=== PATIENT | female | born 1970 | race Native Hawaiian/Other Pacific Islander ===

== ENCOUNTER 2016-06-27 13:30 | Emergency (ER) | payer MEDICAID ==
[2016-06-27 15:16] VITALS: BP 152/92
[2016-06-27 15:54] LABS: Basophils % (Auto) 0.2 % (0.0-1.8); Eosinophils % (Auto) 0.9 % (0.0-4.3); Hematocrit 33.6 % (30.3-42.9); Mean Corpuscular HGB Conc 33 % (30-34); Mean Corpuscular Hemoglobin 28 pg (28-32); Mean Corpuscular Volume 87 fl (79-97); Platelet Count 286 K/mm3 (140-440); Red Blood Count 3.88 M/mm3 (3.65-5.03); White Blood Count 5.3 K/mm3 (4.5-11.0)
[2016-06-27 16:03] LABS: Alanine Aminotransferase 31 units/L (7-56); Albumin 4.2 g/dL (3.9-5); Albumin/Globulin Ratio 1.7 %; Alkaline Phosphatase 60 units/L (35-129); Anion Gap 15 mmol/L; Bilirubin,Total 0.4 mg/dL (0.1-1.2); Blood Urea Nitrogen 12 mg/dL (7-17); Calcium 8.2 mg/dL (8.4-10.2); Carbon Dioxide 26 mmol/L (22-30); Chloride 102.1 mmol/L (98-107); Glucose 128 mg/dL (65-100); Potassium 3.5 mmol/L (3.6-5.0); Sodium 140 mmol/L (137-145); Total Protein 6.7 g/dL (6.3-8.2)
[2016-06-27 16:06] LABS: Red Cell Distribution Width 20.5 % (13.2-15.2)
== END 2016-06-27 22:39 | disposition left against medical advice (07) ==
LOC: ED 13:30
DX: R05 Cough (principal); R09.89 Other specified symptoms and signs involving the circulatory and respiratory systems; Z91.048 Other nonmedicinal substance allergy status; Z53.21 Procedure and treatment not carried out due to patient leaving prior to being seen by health care provider
CPT/HCPCS: 36415; 80053; 85025

== ENCOUNTER 2016-06-30 13:14 | Outpatient (CLI) | payer MEDICAID ==
--- NOTE | 2016-06-30 14:02 | Mammography Report ---
RIGHT DIGITAL DIAGNOSTIC MAMMOGRAM with CAD: 06/30/16 13:14:00 CLINICAL: Status post chemotherapy for right breast cancer. COMPARISON:01/09/16 FINDINGS: Decreased mammographic density and no distinct residual mass in the outer breast at the site of the cancer.No architectural distortion or suspicious calcifications. Four right axillary lymph nodes and one lymph node with a clip. The previously documented metastatic lymph node now measures 1.8 cm compared to 3.0 cm on the last exam. IMPRESSION: Partial mammographic response to chemotherapy. BI-RADS CATEGORY: 6--Known Cancer ACR BI-RADS MAMMOGRAPHIC CODES: 0 = Needs additional imaging evaluation; 1 = Negative; 2 = Benign; 3 = Probably benign; 4 = Suspicious; 5 = Malignant; 6 = Known biopsy-proven malignancy COMMENT: 1. Dense breast tissue, i.e., adenosis, fibrocystic changes, etc., may obscure an underlying neoplasm. 2. Approximately 10% of cancers are not detected with mammography. 3. A negative mammography report should not delay biopsy if a clinically suspicious mass is present. COMMENT: Patient follow-up letters are generated by our [employer] application.
== END 2016-06-30 13:15 | disposition home or self-care (01) ==
LOC: SPVWC 13:14
PROVIDERS: ATTEND Surgery
DX: C50.911 Malignant neoplasm of unspecified site of right female breast (principal); R92.8 Other abnormal and inconclusive findings on diagnostic imaging of breast
CPT/HCPCS: G0206-RT

== ENCOUNTER 2016-07-06 09:20 | Outpatient (CLI) | payer MEDICAID | END 2016-07-06 09:21 | disposition home or self-care (01) | LOC: ECHO 09:20 | PROVIDERS: ATTEND Internal Medicine Hematology | DX: C50.411 Malignant neoplasm of upper-outer quadrant of right female breast (principal) | CPT/HCPCS: 93306 ==

== ENCOUNTER 2016-07-22 08:51 | Observation (INO) | payer MEDICAID ==
[2016-07-21 12:20] LABS: Basophils % (Auto) 0.2 % (0.0-1.8); Eosinophils % (Auto) 1.7 % (0.0-4.3); Hemoglobin 11.4 gm/dl (10.1-14.3); White Blood Count 8.8 K/mm3 (4.5-11.0)
--- NOTE | 2016-07-21 12:47 | XRay Report ---
CHEST 2 VIEWS INDICATION: Right breast cancer. COMPARISON: None similar. FINDINGS: PA and lateral chest radiographs demonstrate normal cardiomediastinal silhouette and clear lungs, given the inspiration. No pleural effusions or CHF. Left subclavian port tip along the SVC. Slight bony degenerative changes. CONCLUSION: No acute disease, as described. Thank you for the opportunity to participate in this patient's care.
[2016-07-21 12:54] LABS: Mean Corpuscular HGB Conc 32 % (30-34); Mean Corpuscular Hemoglobin 27 pg (28-32); Mean Corpuscular Volume 85 fl (79-97); Platelet Count 297 K/mm3 (140-440); Red Blood Count 4.13 M/mm3 (3.65-5.03); Red Cell Distribution Width 19.3 % (13.2-15.2)
[~2016-07-22 08:51] MED LIST: NACL 0.9% 1000 ML 1,000 ML IV SCH; NEURONTIN PO NR; PEPCID PO NR
[2016-07-22] MEDS: SUBLIMAZE IV SCH ×3 (09:42→15:01)
[2016-07-22] MEDS: VERSED IV NR ×2 (09:42→14:47)
--- NOTE | 2016-07-22 10:14 | Anesthesia Day of Surgery ---
Anesthesia Day of Surgery - Day of Surgery Patient Examined: Yes Patient H&P Reviewed: Yes Patient is NPO: Yes
--- NOTE | 2016-07-22 10:14 | Anesthesia Consultation ---
Anesthesia Consult and Med Hx Date of service: 07/22/16 - Airway Anesthetic Teeth Evaluation: Good ROM Head & Neck: Adequate Mental/Hyoid Distance: Inadequate Mallampati Class: Class II Intubation Access Assessment: Possibly Difficult - Pulmonary Exam CTA: Yes - Cardiac Exam Cardiac Exam: RRR - Pre-Operative Health Status ASA Pre-Surgery Classification: ASA2 Proposed Anesthetic Plan: General Nerve Block: PEC - Pulmonary Hx Smoking: No Hx Sleep Apnea: No - Cardiovascular System Hx Cardia Arrhythmia: No - Gastrointestinal Hx Gastroesophageal Reflux Disease: Yes (moderate) - Endocrine Hx Non-Insulin Dependent Diabetes: No Hx Thyroid Disease: No - Other Systems Hx Cancer: Yes (RIGHT BREAST, DX: 12/2015) Hx Obesity: Yes (BMI>40)
[2016-07-22] MEDS ORDERED: ANCEF/STERILE WATER 2 GM/20 ML IV NR (10:18)
[2016-07-22] MEDS ORDERED: DIPRIVAN 10 MG/ML IV ONE (12:51)
[2016-07-22] MEDS ORDERED: DILAUDID ONE (12:51)
[2016-07-22] MEDS ORDERED: MARCAINE-EPI/PF 0.5%-1:200,000 INFILTRATI ONE (13:28)
[2016-07-22] MEDS ORDERED: DECADRON ONE (13:28)
[2016-07-22] MEDS ORDERED: WATER FOR IRRIG STERILE IR ONE (16:13)
[2016-07-22] MEDS ORDERED: NACL 0.9% 1000 ML 1,000 ML ONE (17:24)
[2016-07-22] MEDS ORDERED: XYLOCAINE MPF 2% ONE (18:07)
[2016-07-22] MEDS ORDERED: ZOFRAN ONE (18:55)
[2016-07-22] MEDS ORDERED: TORADOL ONE (18:55)
[2016-07-22] MEDS ORDERED: ANCEF ONE (18:56)
[2016-07-22] MEDS ORDERED: SODIUM CHLORIDE FLUSH SYRINGE 10 ML IV PRN (19:55)
[2016-07-22] MEDS ORDERED: ZOFRAN IV PRN (19:55)
[2016-07-22] MEDS ORDERED: TYLENOL PO PRN (19:55)
[2016-07-22] MEDS ORDERED: BENADRYL PO PRN (19:55)
[2016-07-22] MEDS ORDERED: REGLAN PO PRN (19:55)
[2016-07-22] MEDS ORDERED: MORPHINE IV PRN (20:05)
--- NOTE | 2016-07-22 20:05 | Short Stay Summary ---
Short Stay Documentation Date of service: 07/22/16 - History H&P: obtained from office - Allergies and Medications Current Medications: Allergies POWDER IN GLOVES Adverse Reaction (Uncoded 02/05/16 09:26) Itching Home Medications Medication Instructions Recorded Confirmed Last Taken Type Hydroxyzine HCl [hydrOXYzine] 50 mg PO QDAY 01/24/16 01/24/16 07/20/16 History Sertraline [Zoloft] 100 mg PO QDAY 01/24/16 02/05/16 07/20/16 History risperiDONE [RisperDAL] 2 mg PO QHS 01/24/16 01/24/16 07/20/16 History HYDROcodone/APAP 5-325 [[place] 1 each PO Q6HR PRN #30 tablet 02/05/16 Unknown Rx 5/325] HYDROcodone/APAP 5-325 [[place] 1 each PO Q6HR PRN #30 tablet 07/22/16 Unknown Rx 5/325] Active Medications Acetaminophen (Tylenol) 650 mg PO Q6H PRN PRN Reason: Pain MILD(1-3)/Fever >100.5/LOMBARDI Cefazolin Sodium (Ancef/Sterile Water 2 Gm/20 Ml) 2 gm IV PREOP NR Stop: 07/22/16 23:59 Celecoxib (Celebrex) 200 mg PO PREOP NR Stop: 07/22/16 23:01 Last Admin: 07/22/16 09:45 Dose: 200 mg Diphenhydramine HCl (Benadryl) 25 mg PO Q8H PRN PRN Reason: Itching Docusate Sodium (Colace) 100 mg PO BID CASH Famotidine (Pepcid) 20 mg PO PREOP NR Stop: 07/22/16 23:00 Last Admin: 07/22/16 09:45 Dose: 20 mg Fentanyl (Sublimaze) 100 mcg IV ONCE CASH Stop: 07/22/16 23:00 Last Admin: 07/22/16 15:01 Dose: 50 mcg Gabapentin (Neurontin) 600 mg PO PREOP NR Stop: 07/22/16 23:00 Last Admin: 07/22/16 09:45 Dose: 600 mg Sodium Chloride (Nacl 0.9% 1000 Ml) 1,000 mls @ 100 mls/hr IV DIRECT CASH Last Admin: 07/22/16 09:40 Dose: 100 mls/hr Lactated Ringer's (Lactated Ringers) 1,000 mls @ 125 mls/hr IV DIRECT CASH Midazolam HCl (Versed) 2 mg IV PREOP NR Stop: 07/22/16 23:00 Last Admin: 07/22/16 14:47 Dose: 2 mg Miscellaneous Medication (Risperidone [Risperdal]) 2 mg PO QHS CASH Ondansetron HCl (Zofran) 4 mg IV Q8H PRN PRN Reason: N/V unrelieved by Reglan Oxycodone/Acetaminophen (Percocet 5/325) 1 tab PO Q6H PRN PRN Reason: Pain, Moderate (4-6) Sertraline HCl (Zoloft) 100 mg PO QDAY CASH Sodium Chloride (Sodium Chloride Flush Syringe 10 Ml) 10 ml IV PRN PRN PRN Reason: LINE FLUSH - Brief post op/procedure progress note Date of procedure: 07/22/16 Pre-op diagnosis: Right breast cancer of the upper outer quadrant Post-op diagnosis: same Procedure: Right partial mastectomy with SLNB Anesthesia: GETA Findings: Radiograph specimen with clip present within known breast cancer mass-partial mastectomy specimen and axillary lymph node biopsy specimen Surgeon: ETHAN FISHMAN Estimated blood loss: minimal Pathology: list (right partial mastectomy and 4 SLNs) Specimen disposition: to lab Condition: stable - Disposition Condition at discharge: Good Disposition: DC/TX SHORT-TERM GEN HOSP INPT Short Stay Discharge Plan Activity: other (no heavy lifting) Diet: low fat Wound: other (keep incision clean and dry and may shower in 24 hours ; no baths , pools or lakes; do not rub or scrub incisions) Follow up with: SLICK ROMERO MD [Primary Care Provider] - 7 Days ETHAN FISHMAN MD [Staff Physician] - 7 Days Prescriptions: HYDROcodone/APAP 5-325 [[place] 5/325] 1 each PO Q6HR PRN #30 tablet PRN Reason: Pain
--- NOTE | 2016-07-22 20:09 | Post Anesthesia Evaluation ---
- Post Anesthesia Evaluation Patient Participated: Yes Airway Patent: Yes Stable Respiratory Function: Yes Nausea/Vomiting: No Temp > 96.8F: Yes Pain Manageable: Yes Adequeate Hydration: Yes Anesthesia Complications: No
--- NOTE | 2016-07-22 20:26 | Operative Report ---
Operative Report Operative Report: Date of surgery: 07/22/2016 Preoperative diagnosis: Right breast cancer of the upper outer quadrant Postoperative diagnosis: Same Procedure: Ultrasound guided right partial mastectomy and sentinel lymph node biopsy Surgeon: Constanza Powell M.D. Anesthesia: Gen. Drains: None Findings: Radiograph specimen of right partial mastectomy with mass and clip present. Radiograph specimen of axillary lymph node with clip present. Frozen section performed with 4 sentinel lymph nodes with one lymph node positive for macro metastasis. Complications: None Disposition: PACU in good condition Indications for operative procedure: This is a 45-year-old lady with stage III right breast cancer who recently completed neoadjuvant chemotherapy. Patient was in need of surgical intervention. Patient wished to proceed with the above. Procedure in detail: The patient was taken to the operating room and was laid supine. Anesthesia placed a pectoral block prior to surgery. Gen. anesthesia was administered. The right breast and axilla were prepped and draped in the normal sterile operative fashion. The nipple was injected with radioisotope. Gamma probe was inserted into the axilla to identify sentinel lymph node. Skin incision was made at the axilla with a 15 blade knife with dissection taken down to the subcutaneous tissue. The axilla axillary fascia was opened. The gamma probe was inserted with a total 4 sentinel lymph nodes identified. Significant reactive tissue was present within the axilla. Radiopgraph specimen of One lymph node with clip present. Frozen section of one of 4 positive lymph nodes positive for macro metastasis. It was decided not to proceed with an axillary lymph node dissection givean one of four positive lymph nodes and will await final pathology. Patient understood pending final pathology additional procedure may be needed in regards to the axillary lymph node dissection and/or total mastectomy pending surgical margins. I spoke with patient's medical oncologist Dr. Keyes who did not recommend proceeding with axillary lymph node dissection given patient will need adjuvant radiation therapy and should await final pathology. Attention was then taken towards the right breast. Ultrasound was used to sandy the area of incision of known breast cancer at the 9 o'clock position about 3-4 cm from the nipple. A skin incision was made with a 10 blade knife with dissection taken down to the subcutaneous tissues. Procedure began with the raising og the superior flap taken with dissection taken down posteriorly to the pectoralis muscle followed by raising of the medial flap, inferior flap and lateral flap all taken down to the pectoralis muscle. The partial mastectomy was removed from the pectoralis muscle without incident. Hemostasis was obtained with the Bovie cautery. Radiograph specimen with clip and mass present. The subcutaneous tissues were then approximated and closed with interrupted 3-0 Vicryl and skin brought together with a running 4-0 Monocryl and skin affix. The patient tolerated surgery very well and she was awakened from anesthesia without any complication and transferred to PACU in good condition.
[2016-07-22] MEDS: COLACE PO SCH (21:40)
[2016-07-22] MEDS: LACTATED RINGERS 1,000 ML IV SCH (21:40)
[2016-07-22] MEDS ORDERED: RisperDAL PO SCH (22:00)
[2016-07-22] MEDS ORDERED: NON-FORMULARY (Risperidone [Risperdal] 2 MG) PO SCH (22:00)
[2016-07-22] MEDS: PERCOCET 5/325 PO PRN (22:45)
[2016-07-23] MEDS: LACTATED RINGERS 1,000 ML IV SCH (06:56)
[2016-07-23] MEDS: PERCOCET 5/325 PO PRN (06:57)
--- NOTE | 2016-07-23 07:54 | Admit Criteria Form ---
Admission Criteria Met: Pending
--- NOTE | 2016-07-23 08:20 | Mammography Report ---
SPECIMEN RADIOGRAPH RIGHT SENTINEL NODE: 07/22/16 06:32 PM CLINICAL: Surgical excision of right single node. FINDINGS: Fragments of tissue are unremarkable with no clip or calcifications. IMPRESSION: No significant radiographic findings.
--- NOTE | 2016-07-23 08:21 | Mammography Report ---
SPECIMEN RADIOGRAPH RIGHT AXILLA: 07/22/16 07:20 9 PM CLINICAL: Axillary node dissection. FINDINGS: A 1.4 cm lymph node with a biopsy clip is identified within the assessment. IMPRESSION: Excision of the previously biopsied lymph node.
--- NOTE | 2016-07-23 08:22 | Mammography Report ---
SPECIMEN RADIOGRAPH RIGHT BREAST: 07/22/16 05:50 1 PM CLINICAL: Right excisional biopsy. FINDINGS: A single small tissue specimen with no identifiable mass or calcifications.
--- NOTE | 2016-07-23 08:23 | Mammography Report ---
SPECIMEN RADIOGRAPH RIGHT BREAST: 07/22/16 19:29 CLINICAL: Surgical excision of none cancer. FINDINGS: The targeted mass with a clip is identified within the specimen. IMPRESSION: Excision of the targeted mass.
--- NOTE | 2016-07-23 09:07 | Progress Note ---
Subjective Date of service: 07/23/16 Interval history: 1st POD after mastectomy Patient is in the bed, mostly comfortable. Pain is well controlled with pain meds. Ambulated well. No nausea or vomiting. No anesthesia complications Objective - Constitutional Vitals: Vital Signs - 12hr 07/22/16 07/23/16 07/23/16 22:45 00:00 04:30 Temperature 98.2 F 98.0 F Pulse Rate [ 71 72 Left] Respiratory 19 20 20 Rate Blood Pressure 119/61 104/74 [Left Arm] 07/23/16 06:57 Temperature Pulse Rate [ Left] Respiratory 18 Rate Blood Pressure [Left Arm] - Labs CBC & Chem 7: 07/21/16 12:05
[2016-07-23 09:28] VITALS: BP 112/63
[2016-07-23] MEDS ORDERED: ZOLOFT PO SCH (10:00)
[2016-07-23] MEDS: COLACE PO SCH (10:11)
--- NOTE | 2016-07-23 22:27 | Progress Note ---
Assessment and Plan This is a 45 year old lady with right breast cancer POD#1 right partial mastectomy with SLNB 1. No acute events overnight, pain well controlled. 2. Right breast incision clean, dry and intact and healing well. 3. OOB to hallway. 4. D/C planning for today. Subjective Date of service: 07/23/16 Principal diagnosis: Right breast cancer of the upper outer quadrant Interval history: Status post right partial mastectomy and SLNB Objective - Constitutional General appearance: Present: no acute distress - EENT Eyes: PERRL, EOM intact ENT: hearing intact, clear oral mucosa Ears: bilateral: normal - Neck Neck: supple, normal ROM - Respiratory Respiratory effort: normal Respiratory: bilateral: CTA - Breasts Breasts: other (Right breast incision clean, dry and intact; no fluid collection; right axillary incisio clean, dry and intact) - Cardiovascular Rhythm: regular Extremities: no ischemia, pulses intact, pulses symmetrical, No edema, normal temperature, normal color, Full ROM - Gastrointestinal General gastrointestinal: Present: soft, non-tender, non-distended Rectal Exam: deferred - Genitourinary Female genitourinary: deferred - Integumentary Integumentary: clear, warm, dry - Musculoskeletal Musculoskeletal: strength equal bilaterally - Neurologic Neurologic: CNII-XII intact, moves all extremities - Psychiatric Psychiatric: appropriate mood/affect, intact judgment & insight, memory intact, cooperative - Labs CBC & Chem 7: 07/21/16 12:05
== END 2016-07-23 11:35 | disposition home or self-care (01) ==
LOC: OR 08:51 → OB 19:55
PROVIDERS: ADMIT Surgery; ATTEND Surgery
DX: C50.411 Malignant neoplasm of upper-outer quadrant of right female breast (principal); C96.9 Malignant neoplasm of lymphoid, hematopoietic and related tissue, unspecified; D24.1 Benign neoplasm of right breast; E66.3 Overweight; R59.1 Generalized enlarged lymph nodes; Z79.899 Other long term (current) drug therapy
CPT/HCPCS: 19301; 36415; 38525; 64450; 71020; 76098; 78800; 84703; 85025; 88307; 88331; 88334; 88342; 88361; 93005; 93010; 96374; A9541; G0378; J0690; J1100; J1170; J1885; J2250; J2405; J2704; J3010; J7030; J7120; 88333

== ENCOUNTER 2016-07-27 09:03 | Outpatient (CLI) | payer OTHER ==
--- NOTE | 2016-07-27 11:09 | XRay Report ---
LEFT KNEE, 2 views: History: Left knee pain. Normal bone mineralization. Mild osteoarthritic changes are identified in all 3 compartments. No fracture, bone lesion, osteochondral defect or joint effusion. IMPRESSION: Mild osteoarthritic changes. No acute process.
--- NOTE | 2016-07-27 11:10 | XRay Report ---
LUMBOSACRAL SPINE, 3 VIEWS: History: Back pain Findings: Normal bone mineralization. Mild to moderate degenerative disc disease and facet arthropathy are identified at all levels. No compression deformity, subluxation or bone lesion. The sacrum and SI joints are unremarkable. Impression: Mild to moderate multilevel lumbar spondylosis. No acute process.
== END 2016-07-27 09:04 | disposition home or self-care (01) ==
LOC: XRAY 09:03
PROVIDERS: ATTEND Internal Medicine
DX: C50.919 Malignant neoplasm of unspecified site of unspecified female breast (principal); F31.9 Bipolar disorder, unspecified; F41.9 Anxiety disorder, unspecified; M19.90 Unspecified osteoarthritis, unspecified site; M51.37 Other intervertebral disc degeneration, lumbosacral region; M47.896 Other spondylosis, lumbar region
CPT/HCPCS: 72100

== ENCOUNTER 2016-08-26 16:58 | Outpatient (CLI) | payer MEDICAID, OTHER | END 2016-08-26 16:59 | disposition home or self-care (01) | LOC: LABHHL 16:58 → LAB 16:58 | PROVIDERS: ATTEND Surgery | DX: N64.89 Other specified disorders of breast (principal) | CPT/HCPCS: 87116 ==

== ENCOUNTER 2016-09-26 11:35 | Emergency (ER) | payer MEDICAID ==
[2016-09-26 12:15] LABS: Hematocrit 36.9 % (30.3-42.9); Hemoglobin 11.8 gm/dl (10.1-14.3); Mean Corpuscular HGB Conc 32 % (30-34); Mean Corpuscular Hemoglobin 25 pg (28-32); Mean Corpuscular Volume 77 fl (79-97); Platelet Count 263 K/mm3 (140-440); Red Blood Count 4.77 M/mm3 (3.65-5.03); Red Cell Distribution Width 17.7 % (13.2-15.2); White Blood Count 8.5 K/mm3 (4.5-11.0)
--- NOTE | 2016-09-26 12:19 | XRay Report ---
LEFT KNEE, 3 views: History: Left knee pain after fall. Mild to moderate osteoarthritic changes are identified. The medial compartment is most affected. No evidence for fracture or osteochondral defect. IMPRESSION: Osteoarthritic changes. No acute process noted.
[2016-09-26 12:23] LABS: Blood Urea Nitrogen 12 mg/dL (7-17); Carbon Dioxide 26 mmol/L (22-30)
[2016-09-26 12:24] LABS: Anion Gap 17 mmol/L; Calcium 8.8 mg/dL (8.4-10.2); Chloride 100.5 mmol/L (98-107); Glucose 153 mg/dL (65-100); Potassium 3.3 mmol/L (3.6-5.0); Sodium 140 mmol/L (137-145)
--- NOTE | 2016-09-26 12:27 | Cat Scan Report ---
CT HEAD WITHOUT CONTRAST: HISTORY: Dizziness, head injury. Serial contiguous axial images were obtained through the cranium. Intravenous contrast material was not administered. The ventricles are normal in size and appearance. There is no mass effect or midline shift. No areas of abnormally increased or decreased attenuation are seen. No mass lesion is seen. The mastoid air cells and visualized portions of the sinuses are normal. IMPRESSION: Cranial CT scan within normal limits.
[2016-09-26 13:14] LABS: Bilirubin,Urine NEG (Negative); Blood,Urine SM (Negative); Ketones,Urine NEG (Negative); Leukocyte Esterase,Urine NEG (Negative); Mucus,Urine FEW /HPF; Nitrite,Urine NEG (Negative); Urobilinogen,Urine < 2.0 mg/dL (<2.0)
[2016-09-26] MEDS ORDERED: K-DUR PO ONE (18:56)
--- NOTE | 2016-09-26 19:05 | Emergency Department Report ---
HPI - General Chief Complaint: Dizziness Time Seen by Provider: 09/26/16 18:46 - HPI HPI: Room 6 The patient is a 45-year-old female presenting with a chief complaint of anxiety. The patient states her father came to visit her and she has not seen him in a long time. Patient states she believes she became emotional began crying and developed a panic attack. Patient has a history of anxiety. The patient states today she began shaking her mouth got dry and her hands were tenths this lasted approximately 20 minutes. The patient states this is the reason EMS was called. Patient states she took her Atarax and sertraline and now she is asymptomatic. Patient denied ever having chest pain, shortness of breath, nausea/vomiting or dizziness. Patient currently has no complaints Location: Mental state Duration: 20 minutes Quality: Anxious Severity: Moderate Modifying factors: [see above] Context: [see above] Mode of transportation: [not driving] ED Past Medical Hx - Past Medical History Hx Hypertension: Yes Hx Psychiatric Treatment: Yes (anxiety) Additional medical history: breast ca-2016 with chemo - Surgical History Hx Breast Surgery: Yes (RIGHT BREAST BX 12/2015) Additional Surgical History: left chest infusiport,tubaligation - Family History Family history: no significant - Social History Smoking Status: Never Smoker Substance Use Type: None - Medications Home Medications: Home Medications Medication Instructions Recorded Confirmed Last Taken Type Hydroxyzine HCl [hydrOXYzine] 50 mg PO Q6H 01/24/16 09/26/16 09/26/16 History Sertraline [Zoloft] 2 tab PO QDAY 01/24/16 09/26/16 09/26/16 History traZODone [Desyrel] 100 mg PO QHS 09/26/16 09/26/16 09/25/16 History ED Review of Systems ROS: Stated complaint: DIZZINESS Other details as noted in HPI Comment: All other systems reviewed and negative Constitutional: denies: chills, fever Eyes: denies: eye pain, eye discharge, vision change ENT: denies: ear pain, throat pain Respiratory: denies: cough, shortness of breath, wheezing Cardiovascular: denies: chest pain, palpitations Endocrine: no symptoms reported Gastrointestinal: denies: abdominal pain, nausea, diarrhea Genitourinary: denies: urgency, dysuria, discharge Musculoskeletal: denies: back pain, joint swelling, arthralgia Skin: denies: rash, lesions Neurological: denies: headache, weakness, paresthesias Psychiatric: anxiety Hematological/Lymphatic: denies: easy bleeding, easy bruising Physical Exam - Physical Exam Vital Signs: Vital Signs 09/26/16 09/26/16 09/26/16 11:42 17:42 17:43 Temperature 97.7 F Pulse Rate 73 65 Respiratory 20 18 18 Rate Blood Pressure 155/104 Blood Pressure 140/78 [Left] O2 Sat by Pulse 98 100 100 Oximetry Physical Exam: GENERAL: The patient is well-developed well-nourished female lying on stretcher not appearing to be in acute distress. [] HEENT: Normocephalic. Atraumatic. Extraocular motions are intact. Patient has moist mucous membranes. NECK: Supple. No meningitic signs are noted. Trachea midline CHEST/LUNGS: Clear to auscultation. There is no respiratory distress noted. HEART/CARDIOVASCULAR: Regular. There is no tachycardia. There is no gallop rub or murmur. ABDOMEN: Abdomen is soft, nontender. Patient has normal bowel sounds. There is no abdominal distention. SKIN: There is no rash. There is no edema. There is no diaphoresis. NEURO: The patient is awake, alert, and oriented. The patient is cooperative. The patient has no focal neurologic deficits. The patient has normal speech. Cranial nerves II through XII grossly intact intern brand 5+5 bilaterally. No drift MUSCULOSKELETAL: There is no evidence of acute injury. ED Course Vital Signs 09/26/16 09/26/16 09/26/16 11:42 17:42 17:43 Temperature 97.7 F Pulse Rate 73 65 Respiratory 20 18 18 Rate Blood Pressure 155/104 Blood Pressure 140/78 [Left] O2 Sat by Pulse 98 100 100 Oximetry ED Medical Decision Making - Lab Data Result diagrams: 09/26/16 11:54 09/26/16 11:54 Laboratory Tests 09/26/16 09/26/16 09/26/16 11:54 11:54 12:53 WBC 8.5 RBC 4.77 Hgb 11.8 Hct 36.9 MCV 77 L MCH 25 L MCHC 32 RDW 17.7 H Plt Count 263 Sodium 140 Potassium 3.3 L Chloride 100.5 Carbon Dioxide 26 Anion Gap 17 BUN 12 Creatinine 0.6 L Estimated GFR > 60 BUN/Creatinine Ratio 20.00 Glucose 153 H Calcium 8.8 Urine Color Straw Urine Turbidity Clear Urine pH 6.0 Ur Specific [place] 1.011 Urine Protein 100 mg/dl Urine Glucose (UA) Neg Urine Ketones Neg Urine Blood Sm Urine Nitrite Neg Urine Bilirubin Neg Urine Urobilinogen < 2.0 Ur Leukocyte Esterase Neg Urine WBC (Auto) 1.0 Urine RBC (Auto) 3.0 U Epithel Cells (Auto) 1.0 Urine Mucus Few - Radiology Data Radiology results: report reviewed (CT head), image reviewed (CT head, left knee x-ray) interpreted by me: Left knee x-ray-no acute fractures CT head (read a radiologist)-cranial CT scan within normal limits - Differential Diagnosis anxiety,Imbalance, anemia Critical care attestation.: If time is entered above; I have spent that time in minutes in the direct care of this critically ill patient, excluding procedure time. ED Disposition Clinical Impression: Anxiety, Hypokalemia Disposition: DISCHARGED TO HOME OR SELFCARE Is pt being admited?: No Does the pt Need Aspirin: No Condition: Stable Instructions: Anxiety (ED) Additional Instructions: Return to the emergency department immediately should you develop worsening symptoms, fever, inability to tolerate food or liquid or any other concerns. Referrals: PRIMARY CARE, [Primary Care Provider] - 3-5 Days Time of Disposition: 19:10
[2016-09-26 19:26] VITALS: BP 136/73
== END 2016-09-26 19:37 | disposition home or self-care (01) ==
LOC: ED 11:35
DX: F41.9 Anxiety disorder, unspecified (principal); E87.6 Hypokalemia; I10 Essential (primary) hypertension
CPT/HCPCS: 36415; 70450; 80048; 81001; 85027

== ENCOUNTER 2016-11-27 09:56 | Outpatient (CLI) | payer MEDICAID ==
--- NOTE | 2016-11-27 13:42 | Mammography Report ---
BONE DEXA:11/27/16 09:56:00 CLINICAL: Postmenopausal. No comparison. TECHNIQUE: Two site bone DEXA performed on an Hologic scanner. FINDINGS: The average BMD of the lumbar spine L1-L4 is 1.044g/cm squared with a T-score of 0 and a Z-score of 0.5. The average BMD of the left hip is 1.137g/cm squared with a T-score of +1.3 and a Z-score of +1.4. IMPRESSION: WHO classification: Normal with average fracture risk based on both spine and left hip measurements. RECOMMENDATION: Clinical correlation and routine screening. DEFINITIONS: BMD = Bone Mineral Density T-score = BMD related to mean peak bone mass of young adult (mean expressed in Standard Deviation) Z-score = Age matched BMD expressed in SD World Health Organization (WHO) Diagnostic Criteria Normal T-score > -1 SD Osteopenia T-score between -1 and -2.4 SD Osteoporosis T-score -2.5 SD or below NOTE: BMD is not the only risk factor for fracture. One should also consider factors such as the patient's age, risk of falling, previous osteoporotic fracture, family history of osteoporotic fractures, current smoker, and low body weight. Z-scores are not calculated if >80 years of age.
== END 2016-11-27 09:57 | disposition home or self-care (01) ==
LOC: SPVWC 09:56
PROVIDERS: ATTEND Internal Medicine Hematology
DX: Z13.820 Encounter for screening for osteoporosis (principal); I10 Essential (primary) hypertension; F32.9 Major depressive disorder, single episode, unspecified; F41.9 Anxiety disorder, unspecified; Z78.0 Asymptomatic menopausal state
CPT/HCPCS: 77080

== ENCOUNTER 2016-12-19 23:54 | Emergency (ER) | payer MEDICAID ==
[2016-12-20 00:13] VITALS: BP 160/102
== END 2016-12-20 01:00 | disposition left against medical advice (07) ==
LOC: ED 23:54
DX: E86.0 Dehydration (principal); Z53.21 Procedure and treatment not carried out due to patient leaving prior to being seen by health care provider
CPT/HCPCS: 82962

== ENCOUNTER 2017-04-13 09:03 | Outpatient (CLI) | payer MEDICAID ==
--- NOTE | 2017-04-13 09:50 | Mammography Report ---
BILATERAL DIGITAL DIAGNOSTIC MAMMOGRAM WITH CAD : 04/13/17 09:03:00 CLINICAL: Breast cancer survivor status post right partial mastectomy , chemotherapy and radiation therapy. COMPARISON:06/30/16 right mammogram and 12/23/15 bilateral screening mammogram. FINDINGS: The breasts are heterogeneously dense, which may obscure small masses. Right upper outer benign postsurgical scar. Moderate skin thickening of the outer right breast. No mass, suspicious architectural distortion or suspicious calcifications. IMPRESSION: No mammographic evidence of malignancy. BI-RADS CATEGORY: 2 -- Benign RECOMMENDATION: Routine mammographic screening in one year. COMMENT: Patient follow-up letters are generated via our [employer] application.
== END 2017-04-13 09:04 | disposition home or self-care (01) ==
LOC: SPVWC 09:03
PROVIDERS: ATTEND Surgery
DX: N64.89 Other specified disorders of breast (principal); Z90.11 Acquired absence of right breast and nipple; Z85.3 Personal history of malignant neoplasm of breast
CPT/HCPCS: 77066; G0204

== ENCOUNTER 2017-05-05 23:21 | Emergency (ER) | payer MEDICAID ==
[2017-05-05 23:36] VITALS: BP 141/82
== END 2017-05-05 23:37 | disposition left against medical advice (07) ==
LOC: ED 23:21
DX: I10 Essential (primary) hypertension (principal); Z53.21 Procedure and treatment not carried out due to patient leaving prior to being seen by health care provider
CPT/HCPCS: 93005; 93010

== ENCOUNTER 2017-06-08 09:21 | Outpatient (CLI) | payer MEDICAID ==
--- NOTE | 2017-06-08 10:30 | Mammography Report ---
Diagnostic right mammogram. History: Breast cancer survivor status post radiation therapy and chemotherapy. Comparison is made to the recent previous study on April 13, 2017. Findings: The postradiation and postsurgical distortion seen in the upper-outer quadrant of the right breast is unchanged since the recent previous study. No new masses or worsening spiculation. Skin thickening is again noted. Impression: Stable postoperative and postradiation changes. BI-RADS code: 2. Recommendation: Routine screening followup in March of 2018.
== END 2017-06-08 09:22 | disposition home or self-care (01) ==
LOC: SPVWC 09:21
PROVIDERS: ATTEND Surgery
DX: C50.411 Malignant neoplasm of upper-outer quadrant of right female breast (principal)

== ENCOUNTER 2017-08-24 07:50 | Outpatient (CLI) | payer MEDICAID ==
--- NOTE | 2017-08-25 11:35 | Vascular Lab Report ---
LOWER EXTREMITY VENOUS DUPLEX: REASON FOR EXAM: Pain and swelling of the lower extremities. COMMENTS ON THE RIGHT: All veins visualized are freely compressible without evidence of internal echogenicity. Flow is spontaneous and phasic throughout. COMMENTS ON THE LEFT: All veins visualized are freely compressible without evidence of internal echogenicity. Flow is spontaneous and phasic throughout. A soft tissue change in the left knee area is consistent with a Peguero's cyst. IMPRESSION: No evidence of acute or chronic deep venous thrombosis in either lower extremity. A soft tissue change in the left knee area is consistent with a Peguero's cyst.
== END 2017-08-24 07:51 | disposition home or self-care (01) ==
LOC: VAS 07:50
PROVIDERS: ATTEND Internal Medicine Hematology
DX: M79.661 Pain in right lower leg (principal); M79.662 Pain in left lower leg; M79.89 Other specified soft tissue disorders; C50.411 Malignant neoplasm of upper-outer quadrant of right female breast; I10 Essential (primary) hypertension; F32.9 Major depressive disorder, single episode, unspecified; F41.9 Anxiety disorder, unspecified
CPT/HCPCS: 93970

== ENCOUNTER 2017-09-01 09:28 | Emergency (ER) | payer MEDICAID ==
--- NOTE | 2017-09-01 11:16 | Emergency Department Report ---
ED Recheck HPI - General Chief Complaint: High BP Stated Complaint: HIGH BP Time Seen by Provider: 09/01/17 11:14 Source: patient Mode of arrival: Ambulatory Limitations: No Limitations - History of Present Illness Initial Comments: 46F PMH Breast Ca, HTN, Depression p/w c/o running out of BP meds. Patient states that she has been taking hydrochlorothiazide but could not refill her medicines with her primary care doctor due to missed appointments. Patient states that her primary care offices [facility] at [phone]. Patient is awake alert and oriented 3 not in acute distress. Fully lucid. Denies any chest pain shortness of breath palpitations nausea vomiting headache blurry vision. States she has been out of her blood pressure medicines for 1 week. Patient speaks Belarusian which I speak fluently. Complaint: medication refill request Onset/Timin -: week(s) Returns Today for: request for prescription Symptoms Since Prior Visit: no new symptoms - Related Data Home Medications Medication Instructions Recorded Confirmed Last Taken Sertraline [Zoloft] 2 tab PO QDAY 01/24/16 10/14/16 10/12/16 09:00 traZODone [Desyrel] 100 mg PO QHS 09/26/16 10/14/16 10/12/16 09:00 Previous Rx's Medication Instructions Recorded Last Taken Type HYDROcodone/APAP 5-325 [[place] 1 each PO Q6HR PRN #30 tablet 10/14/16 Unknown Rx 5/325] Hydrochlorothiazide 12.5 mg PO QDAY #14 tablet 09/01/17 Unknown Rx Allergies Allergy/AdvReac Type Severity Reaction Status Date / Time POWDER IN GLOVES AdvReac Itching Uncoded 02/05/16 09:26 ED Review of Systems ROS: Stated complaint: HIGH BP Other details as noted in HPI Constitutional: denies: chills, fever Eyes: denies: eye pain, eye discharge, vision change ENT: denies: ear pain, throat pain Respiratory: denies: cough, shortness of breath, wheezing Cardiovascular: denies: chest pain, palpitations Endocrine: no symptoms reported Gastrointestinal: denies: abdominal pain, nausea, diarrhea Genitourinary: denies: urgency, dysuria, discharge Musculoskeletal: denies: back pain, joint swelling, arthralgia Skin: denies: rash, lesions Neurological: denies: headache, weakness, paresthesias Psychiatric: denies: anxiety, depression Hematological/Lymphatic: denies: easy bleeding, easy bruising ED Past Medical Hx - Past Medical History Previous Medical History?: Yes Hx Hypertension: Yes Hx of Cancer: Yes (breast) Hx Psychiatric Treatment: Yes (anxiety) Hx HIV: No Additional medical history: breast ca-2016 with chemo - Surgical History Past Surgical History?: Yes Hx Breast Surgery: Yes (RIGHT BREAST BX 12/2015) Additional Surgical History: left chest infusiport,tubaligation - Social History Smoking Status: Never Smoker Substance Use Type: Prescribed - Medications Home Medications: Home Medications Medication Instructions Recorded Confirmed Last Taken Type Sertraline [Zoloft] 2 tab PO QDAY 01/24/16 10/14/16 10/12/16 09:00 History traZODone [Desyrel] 100 mg PO QHS 09/26/16 10/14/16 10/12/16 09:00 History HYDROcodone/APAP 5-325 [[place] 1 each PO Q6HR PRN #30 tablet 10/14/16 Unknown Rx 5/325] Hydrochlorothiazide 12.5 mg PO QDAY #14 tablet 09/01/17 Unknown Rx ED Physical Exam - General Limitations: No Limitations General appearance: alert, in no apparent distress - Head Head exam: Present: atraumatic, normocephalic - Eye Eye exam: Present: normal appearance, PERRL, EOMI - ENT ENT exam: Present: mucous membranes moist - Neck Neck exam: Present: normal inspection - Respiratory Respiratory exam: Present: normal lung sounds bilaterally. Absent: respiratory distress - Cardiovascular Cardiovascular Exam: Present: regular rate, normal rhythm. Absent: systolic murmur, diastolic murmur, rubs, gallop - GI/Abdominal GI/Abdominal exam: Present: soft, normal bowel sounds - Extremities Exam Extremities exam: Present: normal inspection - Back Exam Back exam: Present: normal inspection - Neurological Exam Neurological exam: Present: alert, oriented X3 - Psychiatric Psychiatric exam: Present: normal affect, normal mood - Skin Skin exam: Present: warm, dry, intact, normal color. Absent: rash ED Course Vital Signs 09/01/17 09:33 Temperature 98.7 F Pulse Rate 83 Respiratory 16 Rate Blood Pressure 138/95 O2 Sat by Pulse 99 Oximetry ED Recheck MDM - Medical Decision Making A/P: Medication refill 1-will prescribe patient low-dose hydrochlorothiazide 12.5 mg once daily as patient does not remember her exact dose 2-I advised patient she needs to follow-up with her primary care doctor [email or web address]. 4- vital signs stable for discharge, patient is clinically asymptomatic has no clinical signs of hypertensive urgency or emergency Critical care attestation.: If time is entered above; I have spent that time in minutes in the direct care of this critically ill patient, excluding procedure time. ED Disposition Clinical Impression: Medication refill Hypertension Qualifiers: Hypertension type: unspecified Qualified Code(s): I10 - Essential (primary) hypertension Disposition: TO HOME OR SELFCARE Is pt being admited?: No Does the pt Need Aspirin: No Condition: Stable Instructions: Hypertension (ED), Hydrochlorothiazide (By mouth) Prescriptions: Hydrochlorothiazide 12.5 mg PO QDAY #14 tablet Referrals: MITCHELL HOLLAND MD [Primary Care Provider] - 3-5 Days [facility] [Outside] - 3-5 Days [facility] [Outside] - 3-5 Days Time of Disposition: 12:07 Print Language: MAURITANIAN
[2017-09-01 12:14] VITALS: BP 154/94
== END 2017-09-01 12:14 | disposition home or self-care (01) ==
LOC: ED 09:28
DX: Z76.0 Encounter for issue of repeat prescription (principal); I10 Essential (primary) hypertension
CPT/HCPCS: 99282

== ENCOUNTER 2017-10-12 13:53 | Outpatient (CLI) | payer MEDICAID ==
--- NOTE | 2017-10-14 13:00 | Mammography Report ---
RIGHT DIGITAL DIAGNOSTIC MAMMOGRAM WITH CAD: 10/12/17 13:53:00 CLINICAL: Breast cancer survivor status post right partial mastectomy with radiation therapy. COMPARISON:06/08/17 and 04/13/17 FINDINGS: The breast is heterogeneously dense, which may obscure small masses.Stable upper outer postsurgical benign scar. No mass, architectural distortion or suspicious calcifications. Stable moderate skin thickening of the right breast. IMPRESSION: No mammographic evidence of malignancy.Stable benign postsurgical and post radiation changes. BI-RADS CATEGORY: 2 -- Benign RECOMMENDATION: Return to routine mammographic screening. ACR BI-RADS MAMMOGRAPHIC CODES: 0 = Needs additional imaging evaluation; 1 = Negative; 2 = Benign; 3 = Probably benign; 4 = Suspicious; 5 = Malignant; 6 = Known biopsy-proven malignancy COMMENT: 1. Dense breast tissue, i.e., adenosis, fibrocystic changes, etc., may obscure an underlying neoplasm. 2. Approximately 10% of cancers are not detected with mammography. 3. A negative mammography report should not delay biopsy if a clinically suspicious mass is present. COMMENT: Patient follow-up letters are generated via our [employer] ? Nurse Navigator application.
== END 2017-10-12 13:54 | disposition home or self-care (01) ==
LOC: SPVWC 13:53
PROVIDERS: ATTEND Surgery
DX: C50.911 Malignant neoplasm of unspecified site of right female breast (principal); F41.9 Anxiety disorder, unspecified; F32.9 Major depressive disorder, single episode, unspecified; K21.9 Gastro-esophageal reflux disease without esophagitis; I10 Essential (primary) hypertension; Z90.11 Acquired absence of right breast and nipple

== ENCOUNTER 2017-12-16 07:52 | Outpatient (CLI) | payer MEDICAID ==
[2017-12-16 09:12] LABS: Blood Urea Nitrogen 15 mg/dL (7-17)
--- NOTE | 2017-12-16 13:26 | Nuclear Medicine Report ---
NUCLEAR MEDICINE WHOLE-BODY BONE SCAN: 12/16/17 09:00:00 CLINICAL: Right breast cancer restaging. COMPARISON: A same day CT CAP and 03/19/16 CTPET. No comparison bone scan. TECHNIQUE: 26.6 millicuries technetium 99m MDP was injected intravenously and whole body scans were obtained at 3 hours. FINDINGS: Focal uptake in the distal right clavicle correlates with a mixed sclerotic and lucent lesion at the sternoclavicular joint on today's CT chest. No other suspicious uptake. Benign multifocal uptake in the shoulders, knees and ankles. IMPRESSION: Probably benign uptake at the right sternoclavicular joint and otherwise negative study.
--- NOTE | 2017-12-16 14:40 | Cat Scan Report ---
CT CHEST, ABDOMEN AND PELVIS WITH CONTRAST INDICATION: Breast cancer. COMPARISON: 03/19/2016 PET/CT. FINDINGS: Chest, abdomen and pelvis CT performed following oral contrast and intravenous administration of 100 cc of Omnipaque 300. CHEST: A 4.2 x 2.7 cm somewhat spiculated right breast mass laterally now identified as on axial series 2, image 46, amongst others, indeterminate for being pathologic versus postsurgical change. Mild overlying right breast skin thickening as well. Few right axillary surgical clips/densities also now seen with previous 2.4 cm round mass with central calcification on axial image 130, series 3 now not clearly identified. Borderline cardiomegaly. No effusions or size significant adenopathy. Unremarkable great vessels. Patent central airway. Normal imaged thyroid. Stable small peripheral right mid lung calcified granuloma, axial image 41. No suspicious lung masses. Slight nonspecific distal esophageal prominence. ABDOMEN: Left hepatic lobe tip again extends well into the left upper quadrant and wraps around the spleen. Right hepatic lobe 22.5 cm in midclavicular length. Liver also now visually hypodense, likely fatty infiltrated. Patent veins. Otherwise unremarkable liver, spleen, gallbladder, pancreas, adrenals, aorta, IVC, kidneys and opacified bowel. No ascites or size significant adenopathy. Tiny fat containing umbilical hernia with a transverse neck of 0.8 cm. PELVIS: Uterus, adnexa, urinary bladder and rectosigmoid within normal limits. No free fluid or significant adenopathy. Few mild multilevel spinal degenerative spurring. Right more than left SI joint sclerosis along the iliac aspect also noted. A 0.6 cm T12 vertebral body sclerotic focus on the left on axial image 171, series 2 is stable, most consistent with a bone island. CONCLUSION: 1. Interval variation in the right breast CT appearance with postsurgical changes now identified as also a 4.2 x 2.7 cm somewhat spiculated right breast mass laterally, as described. Clinical/mammographic correlation suggested. 2. Interval fatty hepatic infiltration. 3. Few other findings, as described. Thank you for the opportunity to participate in this patient's care.
== END 2017-12-16 07:53 | disposition home or self-care (01) ==
LOC: NM 07:52
PROVIDERS: ATTEND Internal Medicine Hematology
DX: C50.411 Malignant neoplasm of upper-outer quadrant of right female breast (principal); K76.0 Fatty (change of) liver, not elsewhere classified; M47.899 Other spondylosis, site unspecified; M53.3 Sacrococcygeal disorders, not elsewhere classified; I10 Essential (primary) hypertension; F32.9 Major depressive disorder, single episode, unspecified; K21.9 Gastro-esophageal reflux disease without esophagitis; E66.9 Obesity, unspecified; Z90.11 Acquired absence of right breast and nipple; Z91.040 Latex allergy status
CPT/HCPCS: 36415; 71260; 74177; 78306; 82565; 84520; 93306; 93971; A9503; Q9967

== ENCOUNTER 2018-07-22 07:47 | Outpatient (CLI) | payer MEDICARE ==
[2018-07-22 08:40] LABS: Blood Urea Nitrogen 12 mg/dL (7-17)
--- NOTE | 2018-07-22 10:09 | Cat Scan Report ---
CT CHEST WITH CONTRAST: HISTORY: Malignant neoplasm of upper outer quadrant of right breast. COMPARISON: 12/16/17. TECHNIQUE: Helical CT in 1.25mm intervals following IV contrast. Sagittal and coronal reformatted images. FINDINGS: Thyroid gland: Normal. Tracheobronchial tree: Normal. Esophagus: Normal. Heart: Normal. Pericardium: Normal. Mediastinum: Normal. Lung Lubin: Normal. Pleural Spaces: Normal. Musculoskeletal: 4.0 x 3.9 cm spiculated density in the right axillary soft tissues appear stable in size and configuration. This presumably represents scarring at the surgical site. Right axillary lymph node dissection changes are also noted. The bony structures are intact. No suspicious bony lesion has developed. Small bone island in T4 is stable. IMPRESSION: Stable findings since 12/16/17. Surgical changes in the right breast and right axilla as described. No evidence for new or metastatic disease.
--- NOTE | 2018-07-22 10:13 | Cat Scan Report ---
CT ABDOMEN PELVIS WITH CONTRAST: HISTORY: Malignant neoplasm of upper outer quadrant of right breast. COMPARISON: 12/16/17. TECHNIQUE: Helical CT in 1.25mm intervals following IV contrast. Sagittal and coronal reconstructions. FINDINGS: Liver: Mild diffuse fatty infiltration of the liver is stable. No suspicious liver mass has developed. Biliary system: Normal. Pancreas: Normal. Spleen: Normal. Kidneys/ureters/bladder: Normal. Adrenal glands: Normal. Aorta: Normal. Intestines: Normal. Appendix: Normal. Pelvic viscera: Normal. Ascites: None. Adenopathy: None. Musculoskeletal: Intact. Minor lumbar spondylosis is noted. No suspicious bony lesion. IMPRESSION: Stable findings since 12/16/17. No evidence for disease metastasis. Fatty infiltration of the liver, stable.
--- NOTE | 2018-07-22 11:49 | Nuclear Medicine Report ---
BONE SCAN: History: Malignant neoplasm of upper outer quadrant of right breast. Comparison: Bone scan dated 12/16/17. CT chest abdomen and pelvis performed the same day. After injection of isotope, gamma camera imaging of the bony system was done. Normal uptake in the urinary system is seen. Mild contamination on the perineum is noted. There is mild to moderate degenerative uptake at the shoulders, sternoclavicular joints, knees and ankles. No focal abnormal uptake to suggest metastatic disease to the bones is demonstrated. IMPRESSION: Degenerative changes. No evidence for metastatic disease to the bones.
== END 2018-07-22 07:48 | disposition home or self-care (01) ==
LOC: NM 07:47
PROVIDERS: ATTEND Internal Medicine Hematology
DX: C50.411 Malignant neoplasm of upper-outer quadrant of right female breast (principal); K76.0 Fatty (change of) liver, not elsewhere classified; M19.012 Primary osteoarthritis, left shoulder; M19.011 Primary osteoarthritis, right shoulder; M19.072 Primary osteoarthritis, left ankle and foot; M19.071 Primary osteoarthritis, right ankle and foot; M17.0 Bilateral primary osteoarthritis of knee; I10 Essential (primary) hypertension; K21.9 Gastro-esophageal reflux disease without esophagitis; E66.9 Obesity, unspecified; Z90.12 Acquired absence of left breast and nipple
CPT/HCPCS: 36415; 71260; 74177; 78306; 82565; 84520; A9503; Q9967

== ENCOUNTER 2018-08-29 20:02 | Emergency (ER) | payer MEDICARE ==
--- NOTE | 2018-08-29 20:38 | Emergency Department Report ---
Chief Complaint: Extremity Problem,Nontraumatic Stated Complaint: RIGHT FOOT PAIN Time Seen by Provider: 08/29/18 20:35 - HPI History of Present Illness: pt presents RLE edema x 2 days has calf soreness no SOB, no CP pt just took a drive to [place] (6 hours there and 6 hours back) hx of breast CA in remission x 2 years - Exam Vital Signs: Vital Signs 08/29/18 20:15 Temperature 98.4 F Pulse Rate 85 Respiratory 18 Rate Blood Pressure 138/91 O2 Sat by Pulse 98 Oximetry MSE screening note: Focused history performed Due to findings the following was ordered: US of RLE ED Disposition for MSE Condition: Stable
[2018-08-29 21:26] LABS: Basophils % (Auto) 0.3 % (0.0-1.8); Eosinophils # (Auto) 0.1 K/mm3 (0.0-0.4); Eosinophils % (Auto) 1.2 % (0.0-4.3); Hemoglobin 12.3 gm/dl (10.1-14.3); Lymphocytes # (Auto) 3.1 K/mm3 (1.2-5.4); Lymphocytes % (Auto) 28.4 % (13.4-35.0); Mean Corpuscular HGB Conc 32 % (30-34); Mean Corpuscular Volume 78 fl (79-97); Monocytes # (Auto) 0.6 K/mm3 (0.0-0.8); Monocytes % (Auto) 5.8 % (0.0-7.3); Platelet Count 244 K/mm3 (140-440); Red Blood Count 4.86 M/mm3 (3.65-5.03); Red Cell Distribution Width 17.7 % (13.2-15.2)
[2018-08-29 21:36] LABS: INR 0.93 (0.87-1.13); Partial Thromboplastin Time 25.2 Sec. (24.2-36.6)
[2018-08-29 21:45] LABS: Alanine Aminotransferase 14 units/L (7-56); BUN/Creatinine Ratio 19; Blood Urea Nitrogen 13 mg/dL (7-17); Calcium 8.9 mg/dL (8.4-10.2); Hemolysis Index 21
--- NOTE | 2018-08-29 22:56 | Vascular Lab Report ---
PROCEDURE: US RIGHT LOWER EXTREMITY VENOUS DUPLEX DOPPLER TECHNIQUE: Duplex Doppler ultrasound of the RIGHT common and superficial femoral, popliteal, posteri or tibial, and proximal deep femoral and greater saphenous veins was attempted. Fontanez scale imaging wi th and without compression, spectral waveform analysis with and without augmentation, and color flow Doppler were employed. CPT 62898-XI HISTORY: Pain and swelling COMPARISONS: None . FINDINGS: Deep Venous Thrombus: None . Superficial Venous Thrombus: None . Venous valvular incompetence: None . Soft tissue abnormality: None . Other: None . IMPRESSION: No evidence of deep venous thrombosis . This document is electronically signed by Hernandez Ray MD., August 29 2018 10:53:59 PM ET
[2018-08-29] MEDS ORDERED: IBUPROFEN PO ONE (23:44)
--- NOTE | 2018-08-29 23:46 | Emergency Department Report ---
ED Extremity Problem HPI - General Chief complaint: Extremity Problem,Nontraumatic Stated complaint: RIGHT FOOT PAIN Time Seen by Provider: 08/29/18 20:35 Source: patient Mode of arrival: Ambulatory Limitations: No Limitations - History of Present Illness Initial comments: 47-year-old female with a past medical history of breast cancer in remission 2 years, hypertension, and anxiety presents to the Hospital complaining of right lateral calf pain, bruising, and swelling 2 days. Patient recently returned from a [address] to and from [place]. She denies chest pain or shortness of breath. She is unsure if she accidentally hit her leg on something. Pain is rated 6/10 in intensity and worse at area of bruising/swelling. Severity scale (0 -10): 7 - Related Data Home Medications Medication Instructions Recorded Confirmed Last Taken Sertraline [Zoloft] 2 tab PO QDAY 01/24/16 10/14/16 10/12/16 09:00 traZODone [Desyrel] 100 mg PO QHS 09/26/16 10/14/16 10/12/16 09:00 Previous Rx's Medication Instructions Recorded Last Taken Type HYDROcodone/APAP 5-325 [[place] 1 each PO Q6HR PRN #30 tablet 10/14/16 Unknown Rx 5/325] hydroCHLOROthiazide 12.5 mg PO QDAY #14 tablet 09/01/17 Unknown Rx [Hydrochlorothiazide] Benzonatate [Tessalon Perles] 100 mg PO Q8HR PRN #20 capsule 03/21/18 Unknown Rx traMADol [Ultram] 50 mg PO Q6HR PRN #7 tablet 03/21/18 Unknown Rx HYDROcodone/APAP 5-325 [[place] 1 each PO Q4HR PRN #12 tablet 04/25/18 Unknown Rx 5/325] methOCARBAMOL [Robaxin TAB] 500 mg PO Q6H PRN #15 tablet 04/25/18 Unknown Rx predniSONE [Deltasone] 20 mg PO QDAY #5 tab 04/25/18 Unknown Rx Naproxen [Naprosyn TAB] 500 mg PO BID #20 tablet 08/29/18 Unknown Rx Allergies Allergy/AdvReac Type Severity Reaction Status Date / Time POWDER IN GLOVES AdvReac Itching Uncoded 02/05/16 09:26 ED Review of Systems ROS: Stated complaint: RIGHT FOOT PAIN Other details as noted in HPI Comment: All other systems reviewed and negative ED Past Medical Hx - Past Medical History Hx Hypertension: Yes Hx Psychiatric Treatment: Yes (anxiety) Hx HIV: No Additional medical history: breast ca-2016 with chemo - Surgical History Hx Breast Surgery: Yes (RIGHT BREAST BX 12/2015) Additional Surgical History: left chest infusiport,tubaligation - Social History Smoking Status: Never Smoker Substance Use Type: None - Medications Home Medications: Home Medications Medication Instructions Recorded Confirmed Last Taken Type Sertraline [Zoloft] 2 tab PO QDAY 01/24/16 10/14/16 10/12/16 09:00 History traZODone [Desyrel] 100 mg PO QHS 09/26/16 10/14/16 10/12/16 09:00 History HYDROcodone/APAP 5-325 [[place] 1 each PO Q6HR PRN #30 tablet 10/14/16 Unknown Rx 5/325] hydroCHLOROthiazide 12.5 mg PO QDAY #14 tablet 09/01/17 Unknown Rx [Hydrochlorothiazide] Benzonatate [Tessalon Perles] 100 mg PO Q8HR PRN #20 capsule 03/21/18 Unknown Rx traMADol [Ultram] 50 mg PO Q6HR PRN #7 tablet 03/21/18 Unknown Rx HYDROcodone/APAP 5-325 [[place] 1 each PO Q4HR PRN #12 tablet 04/25/18 Unknown Rx 5/325] methOCARBAMOL [Robaxin TAB] 500 mg PO Q6H PRN #15 tablet 04/25/18 Unknown Rx predniSONE [Deltasone] 20 mg PO QDAY #5 tab 04/25/18 Unknown Rx Naproxen [Naprosyn TAB] 500 mg PO BID #20 tablet 08/29/18 Unknown Rx ED Physical Exam - General Limitations: No Limitations - Other Other exam information: General: No limitations, patient is alert in no acute distress Head exam: Atraumatic, normocephalic Eyes exam: Normal appearance ENT: Moist mucous membrane, normal oropharynx Neck exam: Normal inspection, full range of motion, no meningismus nontender Respiratory exam: Clear to auscultation bilateral, no wheezes, rales, crackles Cardiovascular: Normal rate and rhythm, normal heart sounds Abdomen: Soft, nondistended, and nontender, with normal bowel sounds, no rebound, or guarding Extremity: Full range of motion, varicose veins noted. Patient has a tender bruise to the right lateral calf. 2+ DP pulse. No warmth, erythema, posterior calf tenderness, or leg asymmetry Back: Normal Inspection, full range of motion, no tenderness Neurologic: Alert, oriented x3, cranial nerves intact, no motor or sensory deficit Psychiatric: normal affect, normal mood Skin: Warm, dry, intact ED Course Vital Signs 08/29/18 08/29/18 08/29/18 20:15 20:35 22:44 Temperature 98.4 F 98.4 F 97.9 F Pulse Rate 85 87 87 Respiratory 18 18 18 Rate Blood Pressure 138/91 138/91 Blood Pressure 120/70 [Left] O2 Sat by Pulse 98 98 100 Oximetry 08/29/18 08/30/18 23:50 00:02 Temperature Pulse Rate Respiratory 15 15 Rate Blood Pressure Blood Pressure [Left] O2 Sat by Pulse Oximetry ED Medical Decision Making - Lab Data Result diagrams: 08/29/18 21:14 08/29/18 21:14 Lab Results 08/29/18 08/29/18 08/29/18 Range/Units 21:14 21:14 21:14 WBC 10.8 (4.5-11.0) K/mm3 RBC 4.86 (3.65-5.03) M/mm3 Hgb 12.3 (10.1-14.3) gm/dl Hct 38.0 (30.3-42.9) % MCV 78 L (79-97) fl MCH 25 L (28-32) pg MCHC 32 (30-34) % RDW 17.7 H (13.2-15.2) % Plt Count 244 (140-440) K/mm3 Lymph % (Auto) 28.4 (13.4-35.0) % Pershing % (Auto) 5.8 (0.0-7.3) % Eos % (Auto) 1.2 (0.0-4.3) % Baso % (Auto) 0.3 (0.0-1.8) % Lymph # 3.1 (1.2-5.4) K/mm3 Pershing # 0.6 (0.0-0.8) K/mm3 Eos # 0.1 (0.0-0.4) K/mm3 Baso # 0.0 (0.0-0.1) K/mm3 Seg Neutrophils % 64.3 (40.0-70.0) % Seg Neutrophils # 6.9 (1.8-7.7) K/mm3 PT 13.0 (12.2-14.9) Sec. INR 0.93 (0.87-1.13) APTT 25.2 (24.2-36.6) Sec. D-Dimer 143.47 (0-234) ng/mlDDU Sodium 139 (137-145) mmol/L Potassium 3.7 (3.6-5.0) mmol/L Chloride 100.8 (98-107) mmol/L Carbon Dioxide 24 (22-30) mmol/L Anion Gap 18 mmol/L BUN 13 (7-17) mg/dL Creatinine 0.7 (0.7-1.2) mg/dL Estimated GFR > 60 ml/min BUN/Creatinine Ratio 19 % Glucose 196 H (65-100) mg/dL Calcium 8.9 (8.4-10.2) mg/dL Total Bilirubin 0.30 (0.1-1.2) mg/dL AST 14 (5-40) units/L ALT 14 (7-56) units/L Alkaline Phosphatase 98 (35-129) units/L Total Protein 6.9 (6.3-8.2) g/dL Albumin 4.0 (3.9-5) g/dL Albumin/Globulin Ratio 1.4 % - Radiology Data Radiology results: report reviewed PROCEDURE: US RIGHT LOWER EXTREMITY VENOUS DUPLEX DOPPLER TECHNIQUE: Duplex Doppler ultrasound of the RIGHT common and superficial femoral, popliteal, posterior tibial, and proximal deep femoral and greater saphenous veins was attempted. Fontanez scale imaging with and without compression, spectral waveform analysis with and without augmentation, and color flow Doppler were employed. CPT 41635-FE HISTORY: Pain and swelling COMPARISONS: None . FINDINGS: Deep Venous Thrombus: None . Superficial Venous Thrombus: None . Venous valvular incompetence: None . Soft tissue abnormality: None . Other: None . IMPRESSION: No evidence of deep venous thrombosis . - Medical Decision Making Patient presents to the hospital with a bruise to the right leg with a negative d-dimer, negative Doppler, and no respiratory or chest pain symptoms. Clinically this appears to be a bruise or localize inflamed varicose veins. No signs of cellulitis. Patient will be treated symptomatically for pain and follow-up with her PMD advised motrin provided prior to d/c - Differential Diagnosis DVT, varicose veins, bruising, cellulitis Critical Care Time: No Critical care attestation.: If time is entered above; I have spent that time in minutes in the direct care of this critically ill patient, excluding procedure time. ED Disposition Clinical Impression: Superficial bruising of lower leg, Varicose veins of legs Disposition: TO HOME OR SELFCARE Is pt being admited?: No Does the pt Need Aspirin: No Condition: Stable Instructions: Varicose Veins (ED), Contusion in Adults (ED) Additional Instructions: Take the medication as prescribed. Follow up with your doctor or the clinic/doctor provided. Return if symptoms worsen as indicated by your discharge instructions Prescriptions: Naproxen [Naprosyn TAB] 500 mg PO BID #20 tablet Referrals: HECTOR HARMON MD [Primary Care Provider] - 3-5 Days your, pmd [Other] - 3-5 Days Time of Disposition: 23:47
[2018-08-30 19:40] VITALS: BP 120/70
== END 2018-08-30 00:02 | disposition home or self-care (01) ==
LOC: ED 20:02
DX: S80.11XA Contusion of right lower leg, initial encounter (principal); I83.91 Asymptomatic varicose veins of right lower extremity; I10 Essential (primary) hypertension; Z88.8 Allergy status to other drugs, medicaments and biological substances; Z98.890 Other specified postprocedural states; Z98.51 Tubal ligation status; W22.8XXA Striking against or struck by other objects, initial encounter; Y93.89 Activity, other specified; Y92.89 Other specified places as the place of occurrence of the external cause; Y99.8 Other external cause status
CPT/HCPCS: 36415; 80053; 85025; 85379; 85610; 85730; 99284

== ENCOUNTER 2018-10-11 13:10 | Outpatient (CLI) | payer MEDICARE ==
--- NOTE | 2018-10-11 13:50 | Mammography Report ---
RIGHT DIGITAL DIAGNOSTIC MAMMOGRAM CAD: 10/11/18 13:10:00 CLINICAL: Personal history of right breast cancer. COMPARISON:04/12/19 FINDINGS: The breast is mostly fatty. Stable upper outer benign postsurgical scar.No mass, suspicious architectural distortion or suspicious calcifications. IMPRESSION: No mammographic evidence of malignancy. BI-RADS CATEGORY: 2 - - Benign RECOMMENDATION: Routine mammographic screening. COMMENT: 1. Dense breast tissue, i.e., adenosis, fibrocystic changes, etc., may obscure an underlying neoplasm. 2. Approximately 10% of cancers are not detected with mammography. 3. A negative mammography report should not delay biopsy if a clinically suspicious mass is present. COMMENT: Patient follow-up letters are generated by our [employer] application.
== END 2018-10-11 13:11 | disposition home or self-care (01) ==
LOC: SPVWC 13:10
PROVIDERS: ATTEND Surgery
DX: C50.911 Malignant neoplasm of unspecified site of right female breast (principal); I10 Essential (primary) hypertension; K21.9 Gastro-esophageal reflux disease without esophagitis; E66.9 Obesity, unspecified

== ENCOUNTER 2019-01-11 17:45 | Emergency (ER) | payer MEDICARE ==
[2019-01-11 18:30] VITALS: BP 154/74
--- NOTE | 2019-01-11 18:31 | Event Note ---
ED Screening Note Date of service: 01/11/19 Time: 18:30 ED Screening Note: ccof left knee pain after falling today at the banner This initial assessment/diagnostic orders/clinical plan/treatment(s) is/are subject to change based on patients health status, clinical progression and re-assessment by fellow clinical providers in the ED. Further treatment and workup at subsequent clinical providers discretion. Patient/guardian urged not to elope from the ED as their condition may be serious if not clinically assessed and managed. Initial orders include: xr knee
--- NOTE | 2019-01-11 19:28 | XRay Report ---
Left knee, 3 views INDICATION: Pain following fall today FINDINGS: There is no fracture or dislocation. No joint effusion is seen. There is moderate patellar spurring as well as spurring from the medial compartment with joint space narrowing. No acute abnorma lity seen. Signer Name: Mark Melara MD Signed: 01/11/2019 7:23 PM Workstation Name: [id number]
[2019-01-11] MEDS ORDERED: NORCO 10/325 PO ONE (21:18)
--- NOTE | 2019-01-11 22:46 | Emergency Department Report ---
ED Lower Extremity HPI - General Chief Complaint: Extremity Injury, Lower Stated Complaint: LT HIP INJURY Time Seen by Provider: 01/11/19 18:30 Source: patient Mode of arrival: Ambulatory Limitations: No Limitations - History of Present Illness Initial Comments: This is a 48-year-old female nontoxic, well nourished in appearance, no acute signs of distress presents to the ED with c/o of left hip and left knee pain 1 day. Patient stated that her grandson fell onto her knee and she fell onto her hip. Patient denies any other trauma. Patient denies any numbness, tingling, fever, chills, nausea, vomiting, chest pain, shortness of breath, headache, stiff neck. Patient denies any joint swelling or joint redness. Patient denies decreased range of motion. Patient stated has decreased gait due to pain. Patient denies any allergies or significant past medical history. MD Complaint: hip injury, knee injury Injury: Hip: Left, Knee: Left Severity: mild Severity scale (0 -10): 8 Improves With: immobilization Worsens With: weight bearing, movement, palpation Context: fall Associated Symptoms: swelling, able to partially bear weight, ambulatory. denies: snap/pop sensation, numbness, tingling, unable to bear weight - Related Data Home Medications Medication Instructions Recorded Confirmed Last Taken Sertraline [Zoloft] 2 tab PO QDAY 01/24/16 10/14/16 10/12/16 09:00 traZODone [Desyrel] 100 mg PO QHS 09/26/16 10/14/16 10/12/16 09:00 Previous Rx's Medication Instructions Recorded Last Taken Type HYDROcodone/APAP 5-325 [[place] 1 each PO Q6HR PRN #30 tablet 10/14/16 Unknown Rx 5/325] hydroCHLOROthiazide 12.5 mg PO QDAY #14 tablet 09/01/17 Unknown Rx [Hydrochlorothiazide] Benzonatate [Tessalon Perles] 100 mg PO Q8HR PRN #20 capsule 03/21/18 Unknown Rx traMADol [Ultram] 50 mg PO Q6HR PRN #7 tablet 03/21/18 Unknown Rx HYDROcodone/APAP 5-325 [[place] 1 each PO Q4HR PRN #12 tablet 04/25/18 Unknown Rx 5/325] methOCARBAMOL [Robaxin TAB] 500 mg PO Q6H PRN #15 tablet 04/25/18 Unknown Rx predniSONE [Deltasone] 20 mg PO QDAY #5 tab 04/25/18 Unknown Rx Naproxen [Naprosyn TAB] 500 mg PO BID #20 tablet 08/29/18 Unknown Rx Acetaminophen/Codeine [Tylenol 1 tab PO Q6H PRN #12 tab 01/11/19 Unknown Rx /Codeine # 3 tab] Allergies Allergy/AdvReac Type Severity Reaction Status Date / Time POWDER IN GLOVES AdvReac Itching Uncoded 02/05/16 09:26 ED Review of Systems ROS: Stated complaint: LT HIP INJURY Other details as noted in HPI Constitutional: denies: chills, fever Eyes: denies: eye pain, eye discharge, vision change ENT: denies: ear pain, throat pain Respiratory: denies: cough, shortness of breath, wheezing Cardiovascular: denies: chest pain, palpitations Endocrine: no symptoms reported Gastrointestinal: denies: abdominal pain, nausea, diarrhea Genitourinary: denies: urgency, dysuria, discharge Musculoskeletal: arthralgia. denies: back pain, joint swelling Skin: denies: rash, lesions Neurological: denies: headache, weakness, paresthesias Psychiatric: denies: anxiety, depression Hematological/Lymphatic: denies: easy bleeding, easy bruising ED Past Medical Hx - Past Medical History Previous Medical History?: Yes Hx Hypertension: Yes Hx Psychiatric Treatment: Yes (anxiety) Hx HIV: No Additional medical history: breast ca-2016 with chemo - Surgical History Past Surgical History?: Yes Hx Breast Surgery: Yes (RIGHT BREAST BX 12/2015) Additional Surgical History: left chest infusiport,tubaligation - Social History Smoking Status: Never Smoker Substance Use Type: None - Medications Home Medications: Home Medications Medication Instructions Recorded Confirmed Last Taken Type Sertraline [Zoloft] 2 tab PO QDAY 01/24/16 10/14/16 10/12/16 09:00 History traZODone [Desyrel] 100 mg PO QHS 09/26/16 10/14/16 10/12/16 09:00 History HYDROcodone/APAP 5-325 [[place] 1 each PO Q6HR PRN #30 tablet 10/14/16 Unknown Rx 5/325] hydroCHLOROthiazide 12.5 mg PO QDAY #14 tablet 09/01/17 Unknown Rx [Hydrochlorothiazide] Benzonatate [Tessalon Perles] 100 mg PO Q8HR PRN #20 capsule 03/21/18 Unknown Rx traMADol [Ultram] 50 mg PO Q6HR PRN #7 tablet 03/21/18 Unknown Rx HYDROcodone/APAP 5-325 [[place] 1 each PO Q4HR PRN #12 tablet 04/25/18 Unknown Rx 5/325] methOCARBAMOL [Robaxin TAB] 500 mg PO Q6H PRN #15 tablet 04/25/18 Unknown Rx predniSONE [Deltasone] 20 mg PO QDAY #5 tab 04/25/18 Unknown Rx Naproxen [Naprosyn TAB] 500 mg PO BID #20 tablet 08/29/18 Unknown Rx Acetaminophen/Codeine [Tylenol 1 tab PO Q6H PRN #12 tab 01/11/19 Unknown Rx /Codeine # 3 tab] ED Physical Exam - General Limitations: No Limitations General appearance: alert, in no apparent distress - Head Head exam: Present: atraumatic, normocephalic - Neck Neck exam: Present: normal inspection, full ROM. Absent: tenderness, meningismus, lymphadenopathy - Extremities Exam Extremities exam: Present: normal inspection, full ROM, tenderness, normal capillary refill. Absent: joint swelling, calf tenderness - Expanded Lower Extremity Exam Left Hip exam: Present: normal inspection, full ROM, tenderness, external rotation, internal rotation, pelvic stability. Absent: swelling, abrasion, laceration, ecchymosis, deformity, crepidus, dislocation, erythema, shortening Upper Leg exam: Present: normal inspection, full ROM. Absent: tenderness, swelling Knee exam: Present: normal inspection, full ROM, tenderness, swelling, full knee extension. Absent: abrasion, laceration, ecchymosis, deformity, crepidus, dislocation, erythema, effusion, pain w/ pronation/supination, posterior draw sign, pain/laxity with valgus, pain/laxity with varus Lower Leg exam: Present: normal inspection, full ROM. Absent: tenderness, swelling Ankle exam: Present: normal inspection, full ROM. Absent: tenderness, swelling Foot/Toe exam: Present: normal inspection, full ROM. Absent: tenderness, swelling Neuro vascular tendon exam: Present: no vascular compromise Gait: Positive: observed and limited by pain - Back Exam Back exam: Present: normal inspection, full ROM. Absent: tenderness, CVA tenderness (R), CVA tenderness (L), muscle spasm, paraspinal tenderness, vertebral tenderness, rash noted - Neurological Exam Neurological exam: Present: alert, oriented X3, normal gait - Psychiatric Psychiatric exam: Present: normal affect, normal mood - Skin Skin exam: Present: warm, dry, intact, normal color. Absent: rash ED Course Vital Signs 01/11/19 18:29 Temperature 98.2 F Pulse Rate 91 H Respiratory 16 Rate Blood Pressure 154/74 O2 Sat by Pulse 97 Oximetry - Reevaluation(s) Reevaluation #1: 01/11/19 22:45 Patient is speaking in full sentences with no signs of distress noted. ED Lower Extremity MDM - Medical Decision Making This is a 48-year-old female that presents with left knee and hip strain. Patient is stable and was examined by me. I referred patient to an orthopedic doctor for further evaluation for possible MRI. X-ray has been obtained and dictated by the radiologist. Patient is notified of the x-ray report with noted by the patient. Patient does have normal gait with no tenderness and no joint swelling. No ecchymosis. no joint redness or swelling. Not warm to touch. No signs of cellulites present. Patient received shamir wrap. Patient was instructed to RICE therapy. Patient received Keymar for pain. Patient stated a family member will drive her home after discharge due to possible drowsiness of Keymar. Patient is discharged with Motrin. At time of discharge, the patient does not seem toxic or ill in appearance. No acute signs of distress noted. Patient agrees to discharge treatment plan of care. No further questions noted by the patient. Critical care attestation.: If time is entered above; I have spent that time in minutes in the direct care of this critically ill patient, excluding procedure time. ED Disposition Clinical Impression: Strain of left knee Qualifiers: Encounter type: initial encounter Qualified Code(s): S86.912A - Strain of unspecified muscle(s) and tendon(s) at lower leg level, left leg, initial encounter Strain of left hip Qualifiers: Encounter type: initial encounter Qualified Code(s): S76.012A - Strain of muscle, fascia and tendon of left hip, initial encounter Disposition: - TO HOME OR SELFCARE Is pt being admited?: No Does the pt Need Aspirin: No Condition: Stable Instructions: Knee Pain (ED), RICE Therapy (ED), Acetaminophen/Codeine (By mouth) Additional Instructions: Follow-up with a orthopedic doctor in 3-5 days or if symptoms worsen and continue return to emergency room as soon as possible. Do not operate any machinery while taking Tylenol with codeine as this may cause drowsiness. Prescriptions: Acetaminophen/Codeine [Tylenol /Codeine # 3 tab] 1 tab PO Q6H PRN #12 tab PRN Reason: Pain , Severe (7-10) Referrals: [facility] [Other] - 3-5 Days RUFUS MAHONEY MD [Staff Physician] - 3-5 Days PRIMARY CAREMD [Referring] - 3-5 Days [facility] [Outside] - 3-5 Days Forms: Work/School Release Form(ED)
--- NOTE | 2019-01-11 23:15 | XRay Report ---
LEFT HIP, 2 VIEWS A 2018 INDICATION / CLINICAL INFORMATION: pain s/p fall. COMPARISON: None available. FINDINGS: No fracture or dislocation. Signer Name: Jarod Denise MD Signed: 01/11/2019 11:11 PM Workstation Name: [id number]
== END 2019-01-11 23:56 | disposition home or self-care (01) ==
LOC: ED 17:45
DX: S86.912A Strain of unspecified muscle(s) and tendon(s) at lower leg level, left leg, initial encounter (principal); S76.012A Strain of muscle, fascia and tendon of left hip, initial encounter; I10 Essential (primary) hypertension; F41.9 Anxiety disorder, unspecified; Z85.3 Personal history of malignant neoplasm of breast; Z98.890 Other specified postprocedural states; Z98.51 Tubal ligation status; Z79.899 Other long term (current) drug therapy; Z91.048 Other nonmedicinal substance allergy status; W01.0XXA Fall on same level from slipping, tripping and stumbling without subsequent striking against object, initial encounter; Y93.E2 Activity, laundry; Y92.89 Other specified places as the place of occurrence of the external cause; Y99.8 Other external cause status

== ENCOUNTER 2019-04-07 13:46 | Emergency (ER) | payer MEDICARE ==
[2019-04-07 14:16] VITALS: BP 135/78
--- NOTE | 2019-04-07 20:00 | Emergency Department Report ---
ED General Adult HPI - General Chief complaint: Recheck/Abnormal Lab/Rx Stated complaint: MED REFILL Time Seen by Provider: 04/07/19 18:36 Source: patient Mode of arrival: Ambulatory Limitations: Language Barrier - Related Data Home Medications Medication Instructions Recorded Confirmed Last Taken Sertraline [Zoloft] 2 tab PO QDAY 01/24/16 10/14/16 10/12/16 09:00 traZODone [Desyrel] 100 mg PO QHS 09/26/16 10/14/16 10/12/16 09:00 Previous Rx's Medication Instructions Recorded Last Taken Type HYDROcodone/APAP 5-325 [[place] 1 each PO Q6HR PRN #30 tablet 10/14/16 Unknown Rx 5/325] hydroCHLOROthiazide 12.5 mg PO QDAY #14 tablet 09/01/17 Unknown Rx [Hydrochlorothiazide] Benzonatate [Tessalon Perles] 100 mg PO Q8HR PRN #20 capsule 03/21/18 Unknown Rx traMADoL [Ultram] 50 mg PO Q6HR PRN #7 tablet 03/21/18 Unknown Rx HYDROcodone/APAP 5-325 [[place] 1 each PO Q4HR PRN #12 tablet 04/25/18 Unknown Rx 5/325] methOCARBAMOL [Robaxin TAB] 500 mg PO Q6H PRN #15 tablet 04/25/18 Unknown Rx predniSONE [Deltasone] 20 mg PO QDAY #5 tab 04/25/18 Unknown Rx Naproxen [Naprosyn TAB] 500 mg PO BID #20 tablet 08/29/18 Unknown Rx Acetaminophen/Codeine [Tylenol 1 tab PO Q6H PRN #12 tab 01/11/19 Unknown Rx /Codeine # 3 tab] Sertraline [Zoloft] 200 mg PO QDAY #48 tablet 04/07/19 Unknown Rx Allergies Allergy/AdvReac Type Severity Reaction Status Date / Time POWDER IN GLOVES AdvReac Itching Uncoded 04/07/19 13:47 ED Review of Systems ROS: Stated complaint: MED REFILL Other details as noted in HPI Comment: All other systems reviewed and negative ED Past Medical Hx - Past Medical History Hx Hypertension: Yes Hx Psychiatric Treatment: Yes (anxiety) Hx HIV: No Additional medical history: breast ca-2016 with chemo - Surgical History Hx Breast Surgery: Yes (RIGHT BREAST BX 12/2015) Additional Surgical History: left chest infusiport,tubaligation - Social History Smoking Status: Never Smoker Substance Use Type: None - Medications Home Medications: Home Medications Medication Instructions Recorded Confirmed Last Taken Type Sertraline [Zoloft] 2 tab PO QDAY 01/24/16 10/14/16 10/12/16 09:00 History traZODone [Desyrel] 100 mg PO QHS 09/26/16 10/14/16 10/12/16 09:00 History HYDROcodone/APAP 5-325 [[place] 1 each PO Q6HR PRN #30 tablet 10/14/16 Unknown Rx 5/325] hydroCHLOROthiazide 12.5 mg PO QDAY #14 tablet 09/01/17 Unknown Rx [Hydrochlorothiazide] Benzonatate [Tessalon Perles] 100 mg PO Q8HR PRN #20 capsule 03/21/18 Unknown Rx traMADoL [Ultram] 50 mg PO Q6HR PRN #7 tablet 03/21/18 Unknown Rx HYDROcodone/APAP 5-325 [[place] 1 each PO Q4HR PRN #12 tablet 04/25/18 Unknown Rx 5/325] methOCARBAMOL [Robaxin TAB] 500 mg PO Q6H PRN #15 tablet 04/25/18 Unknown Rx predniSONE [Deltasone] 20 mg PO QDAY #5 tab 04/25/18 Unknown Rx Naproxen [Naprosyn TAB] 500 mg PO BID #20 tablet 08/29/18 Unknown Rx Acetaminophen/Codeine [Tylenol 1 tab PO Q6H PRN #12 tab 01/11/19 Unknown Rx /Codeine # 3 tab] Sertraline [Zoloft] 200 mg PO QDAY #48 tablet 04/07/19 Unknown Rx ED Physical Exam - General Limitations: Language Barrier General appearance: alert, in no apparent distress - Head Head exam: Present: atraumatic, normocephalic - Eye Eye exam: Present: normal appearance, PERRL, EOMI Pupils: Present: normal accommodation - ENT ENT exam: Present: normal exam, mucous membranes moist - Neck Neck exam: Present: normal inspection - Respiratory Respiratory exam: Present: normal lung sounds bilaterally. Absent: respiratory distress - Cardiovascular Cardiovascular Exam: Present: regular rate, normal rhythm. Absent: systolic murmur, diastolic murmur, rubs, gallop - GI/Abdominal GI/Abdominal exam: Present: soft, normal bowel sounds - Extremities Exam Extremities exam: Present: normal inspection - Back Exam Back exam: Present: normal inspection - Neurological Exam Neurological exam: Present: alert, oriented X3 - Psychiatric Psychiatric exam: Present: normal affect, normal mood. Absent: homicidal ideation, suicidal ideation - Skin Skin exam: Present: warm, dry, intact, normal color. Absent: rash ED Course Vital Signs 04/07/19 14:13 Temperature 97.7 F Pulse Rate 90 Respiratory 20 Rate Blood Pressure 135/78 O2 Sat by Pulse 97 Oximetry ED Medical Decision Making - Medical Decision Making 48-year-old female presents with department stating she is out of her Zoloft and to follow up with her provider on May 01 has no medication until that time. She reports no suicidal or homicidal ideation last taken a medication this morning has no medical complaints at current Critical care attestation.: If time is entered above; I have spent that time in minutes in the direct care of this critically ill patient, excluding procedure time. ED Disposition Clinical Impression: Depression, Medication refill Disposition: - TO HOME OR SELFCARE Is pt being admited?: No Does the pt Need Aspirin: No Condition: Stable Instructions: Self-Care Measures with a Chronic Disease (ED) Prescriptions: Sertraline [Zoloft] 200 mg PO QDAY #48 tablet Referrals: HECTOR HARMON MD [Primary Care Provider] - 3-5 Days
== END 2019-04-07 20:14 | disposition home or self-care (01) ==
LOC: ED 13:46
DX: F32.9 Major depressive disorder, single episode, unspecified (principal); Z76.0 Encounter for issue of repeat prescription; I10 Essential (primary) hypertension; F41.9 Anxiety disorder, unspecified; Z79.899 Other long term (current) drug therapy; Z98.51 Tubal ligation status
CPT/HCPCS: 99282

== ENCOUNTER 2019-07-17 08:08 | Emergency (ER) | payer MEDICARE ==
[2019-07-17 08:21] VITALS: BP 160/93
--- NOTE | 2019-07-17 09:31 | Emergency Department Report ---
Eye Injury/Foreign Body - HPI Duration: 2 Days Eye Location: Right Severity: Moderate Tetanus Status: Unknown Eye Symptoms: Eye Pain: Yes (Right), Blurred Vision: No, Eye Redness: No, Grinding/Hammering Metal: No, Used Eye Protection: No, Contact Lens Use: No, Photophobia: No Other History: This is a 48-year-old female who presents to the emergency room with swelling and pain to her right upper eyelid for 2 days. Patient states she was visiting family in [place] when she returned home 2 days ago she started having symptoms. She also reports pruritus is associated symptoms. She denies redness, drainage, crusting, photophobia, or blurry vision. ED Review of Systems ROS: Stated complaint: EYE ISSUES Other details as noted in HPI Constitutional: denies: chills, fever Eyes: eye pain (Right), other (Right upper eyelid swelling). denies: eye discharge, vision change ENT: denies: ear pain, throat pain Respiratory: denies: cough, shortness of breath, wheezing Cardiovascular: denies: chest pain, palpitations Gastrointestinal: denies: abdominal pain, nausea, diarrhea Skin: denies: rash, lesions Neurological: denies: headache, weakness, paresthesias Psychiatric: denies: anxiety, depression ED Past Medical Hx - Past Medical History Previous Medical History?: Yes Hx Hypertension: Yes Hx Psychiatric Treatment: Yes (anxiety) Hx HIV: No Additional medical history: breast ca-2016 with chemo - Surgical History Past Surgical History?: Yes Hx Breast Surgery: Yes (RIGHT BREAST BX 12/2015) Additional Surgical History: left chest infusiport,tubaligation - Social History Smoking Status: Never Smoker Substance Use Type: None - Medications Home Medications: Home Medications Medication Instructions Recorded Confirmed Last Taken Type Sertraline [Zoloft] 2 tab PO QDAY 01/24/16 10/14/16 10/12/16 09:00 History traZODone [Desyrel] 100 mg PO QHS 09/26/16 10/14/16 10/12/16 09:00 History HYDROcodone/APAP 5-325 [[place] 1 each PO Q6HR PRN #30 tablet 10/14/16 Unknown Rx 5/325] hydroCHLOROthiazide 12.5 mg PO QDAY #14 tablet 09/01/17 Unknown Rx [Hydrochlorothiazide] Benzonatate [Tessalon Perles] 100 mg PO Q8HR PRN #20 capsule 03/21/18 Unknown Rx traMADoL [Ultram] 50 mg PO Q6HR PRN #7 tablet 03/21/18 Unknown Rx HYDROcodone/APAP 5-325 [[place] 1 each PO Q4HR PRN #12 tablet 04/25/18 Unknown Rx 5/325] methOCARBAMOL [Robaxin TAB] 500 mg PO Q6H PRN #15 tablet 04/25/18 Unknown Rx predniSONE [Deltasone] 20 mg PO QDAY #5 tab 04/25/18 Unknown Rx Naproxen [Naprosyn TAB] 500 mg PO BID #20 tablet 08/29/18 Unknown Rx Acetaminophen/Codeine [Tylenol 1 tab PO Q6H PRN #12 tab 01/11/19 Unknown Rx /Codeine # 3 tab] Sertraline [Zoloft] 200 mg PO QDAY #48 tablet 04/07/19 Unknown Rx Erythromycin [Erythromycin Ophth 10 applic OP QID 7 Days #1 tube 07/17/19 Unknown Rx Oint] Eye Injury Exam - Exam General: Vital signs noted. No distress. Alert and acting appropriately. - Visual Acuity Right Vision Acuity Degree: 20/20 Eye Exam: Right Chemosis (Right upper eyelid internal pustule at margin, TTP), Both EOMI, Neither Injection, Neither Abnormal Pupil, Neither Eye Foreign Body, Neither Lid Foreign Body, Neither Mucous Discharge, Neither Purulent Discharge, Neither Fluorescein Uptake, Neither Fluorescein Uptake (slit lamp), Neither Cell/Flare (slit lamp), Neither Corneal Edema, Neither Photophobia ED Course Vital Signs 07/17/19 08:18 Temperature 97.7 F Pulse Rate 65 Respiratory 20 Rate Blood Pressure 160/93 O2 Sat by Pulse 97 Oximetry ED Medical Decision Making - Medical Decision Making This is a 48-year-old female that presents with swelling and pain to her right upper eyelid for 2 days. Patient is stable and was examined by me. Salma voss. There is a painful pustule to the right upper eyelid that is subjective of internal hordeolum. Start erythromycin ophthalmic ointment. Advised to use warm compresses. Follow-up with primary care doctor in 3 days or return to the emergency room with worsening symptoms. Discharged home in stable condition. Follow up with PCP in 24-72 hours. - Differential Diagnosis Chalazion, blepharitis Critical care attestation.: If time is entered above; I have spent that time in minutes in the direct care of this critically ill patient, excluding procedure time. ED Disposition Clinical Impression: Hordeolum eyelid, internal Qualifiers: Laterality: right Eyelid: upper Qualified Code(s): H00.021 - Hordeolum internum right upper eyelid Disposition: TO HOME OR SELFCARE Is pt being admited?: No Condition: Stable Instructions: Asa (ED) Additional Instructions: Apply warm compress to the eye for 15 minutes 4 times a day. Clean eyelid twice a day with soap and water. Use antibiotic ointment as instructed for 5 to 7 days. Follow-up with the primary care doctor in 3 to 4 days or return to the emergency room with worsening symptoms. Prescriptions: Erythromycin [Erythromycin Ophth Oint] 10 applic OP QID 7 Days #1 tube Referrals: [facility] [Outside] - 3-5 Days [facility] [Outside] - 3-5 Days [facility] [Outside] - 3-5 Days NARDA BAGLEY MD [Staff Physician] - 3-5 Days Forms: Work/School Release Form(ED), Accompanied Note Time of Disposition: 10:14
== END 2019-07-17 10:22 | disposition home or self-care (01) ==
LOC: ED 08:08
DX: H00.011 Hordeolum externum right upper eyelid (principal); I10 Essential (primary) hypertension; F41.9 Anxiety disorder, unspecified; Z85.3 Personal history of malignant neoplasm of breast; Z98.890 Other specified postprocedural states; Z91.09 Other allergy status, other than to drugs and biological substances; Z98.51 Tubal ligation status; Z79.899 Other long term (current) drug therapy
CPT/HCPCS: 99282

== ENCOUNTER 2020-01-10 15:27 | Emergency (ER) | payer MEDICARE ==
[2020-01-10 15:59] VITALS: BP 171/110
== END 2020-01-10 19:55 | disposition left against medical advice (07) ==
LOC: ED 15:27
DX: R73.9 Hyperglycemia, unspecified (principal); Z53.21 Procedure and treatment not carried out due to patient leaving prior to being seen by health care provider
CPT/HCPCS: 82962

== ENCOUNTER 2020-04-19 23:03 | Emergency (ER) | payer MEDICARE ==
[2020-04-19 23:21] VITALS: BP 146/78
[2020-04-19] MEDS ORDERED: LORazepam 1 MG TAB PO ONE (23:58)
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
== END 2020-04-20 00:25 | disposition home or self-care (01) ==
LOC: ED 23:03
DX: F41.9 Anxiety disorder, unspecified (principal); I10 Essential (primary) hypertension; Z98.51 Tubal ligation status; Z79.899 Other long term (current) drug therapy; Z98.890 Other specified postprocedural states

== ENCOUNTER 2021-05-19 22:00 | Emergency (ER) | payer MEDICARE ==
[2021-05-20] MEDS ORDERED: ONDANSETRON 4 MG ODT TAB PO ONE (05:01)
[2021-05-20] MEDS ORDERED: IBUPROFEN 600 MG TAB PO ONE (05:01)
[2021-05-20] MEDS ORDERED: HYDROcodone/ACETAMINOPHEN 5-325 MG TAB PO ONE (05:01)
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
[2021-05-20 05:39] VITALS: BP 139/83
== END 2021-05-20 05:40 | disposition home or self-care (01) ==
LOC: ED 22:00
DX: S43.491A Other sprain of right shoulder joint, initial encounter (principal); S66.812A Strain of other specified muscles, fascia and tendons at wrist and hand level, left hand, initial encounter; S66.811A Strain of other specified muscles, fascia and tendons at wrist and hand level, right hand, initial encounter; I10 Essential (primary) hypertension; F41.9 Anxiety disorder, unspecified; Z79.899 Other long term (current) drug therapy; Y04.8XXA Assault by other bodily force, initial encounter; Y93.89 Activity, other specified; Y92.89 Other specified places as the place of occurrence of the external cause; Y99.8 Other external cause status
CPT/HCPCS: 99283; J3490; Q0162

== ENCOUNTER 2021-08-14 20:21 | Emergency (ER) | payer MEDICARE ==
[2021-08-15 01:11] LABS: Basophils % (Auto) 0.3 % (0.0-1.8); Eosinophils # (Auto) 0.2 K/mm3 (0.0-0.4); Eosinophils % (Auto) 1.6 % (0.0-4.3); Hematocrit 39.8 % (30.3-42.9); Hemoglobin 12.7 gm/dl (10.1-14.3); Lymphocytes % (Auto) 30.2 % (13.4-35.0); Mean Corpuscular HGB Conc 32 % (30-34); Mean Corpuscular Volume 80 fl (79-97); Monocytes # (Auto) 0.7 K/mm3 (0.0-0.8); Monocytes % (Auto) 6.5 % (0.0-7.3); Platelet Count 231 K/mm3 (140-440); Red Blood Count 4.96 M/mm3 (3.65-5.03); Red Cell Distribution Width 15.6 % (13.2-15.2)
[2021-08-15 01:34] LABS: Alanine Aminotransferase 16 units/L (7-56); Albumin 4.1 g/dL (3.9-5); BUN/Creatinine Ratio 20; Blood Urea Nitrogen 18 mg/dL (7-17); Calcium 8.8 mg/dL (8.4-10.2); Hemolysis Index 1
--- NOTE | 2021-08-15 02:04 | Emergency Department Report ---
ED Extremity Problem HPI - General Chief complaint: Extremity Problem,Nontraumatic Stated complaint: SWOLLEN FEET;ALOT OF PAIN Source: patient Mode of arrival: Ambulatory Limitations: No Limitations - History of Present Illness Initial comments: Patient is a 50-year-old -German female with a history of hypertension, anxiety and breast cancer 3 years ago, and status post partial right mastectomy and who is final oral chemo therapy, and who presented to the ED with complaint of acute onset persistent bilateral lower extremity pain and swelling for the last 1 week. Patient states that she recently traveled by road to [place] and stayed there for 2 weeks and then drove back to [facility]. Patient states that the symptoms have worsened in the last 2 days. Patient denies fall, traumatic injury, dizziness, syncope, nausea and vomiting, diarrhea, heavy lifting, chest pain or shortness of breath, abdominal pain, low back pain, fever and chills. MD Complaint: extremity pain (Bilateral lower extremity pain and swelling), extremity swelling (Bilateral lower extremity swelling), joint swelling -: Sudden, week(s) (1) Location: bilateral lower extremity History of Same: No -: Yes arthralgia, No fever, No associated dyspnea, No associated chest pain Radiation: distal Severity scale (0 -10): 7 Quality: aching, sharp Consistency: constant Improves with: nothing Worsens with: weight bearing, walking, palpation Associated Symptoms: denies other symptoms. denies: chest pain, shortness of breath, fever, myalgias, arthralgias, rash - Related Data Home Medications Medication Instructions Recorded Confirmed Last Taken Sertraline [Zoloft] 2 tab PO QDAY 01/24/16 10/14/16 10/12/16 09:00 traZODone [Desyrel] 100 mg PO QHS 09/26/16 10/14/16 10/12/16 09:00 Previous Rx's Medication Instructions Recorded Last Taken Type HYDROcodone/APAP 5-325 [Irrigon 1 each PO Q6HR PRN #30 tablet 10/14/16 Unknown Rx 5/325] hydroCHLOROthiazide 12.5 mg PO QDAY #14 tablet 09/01/17 Unknown Rx [Hydrochlorothiazide] Benzonatate [Tessalon Perles] 100 mg PO Q8HR PRN #20 capsule 03/21/18 Unknown Rx traMADoL [Ultram] 50 mg PO Q6HR PRN #7 tablet 03/21/18 Unknown Rx HYDROcodone/APAP 5-325 [Irrigon 1 each PO Q4HR PRN #12 tablet 04/25/18 Unknown Rx 5/325] predniSONE [Deltasone] 20 mg PO QDAY #5 tab 04/25/18 Unknown Rx Naproxen [Naprosyn TAB] 500 mg PO BID #20 tablet 08/29/18 Unknown Rx Acetaminophen/Codeine [Tylenol 1 tab PO Q6H PRN #12 tab 01/11/19 Unknown Rx /Codeine # 3 tab] Sertraline [Zoloft] 200 mg PO QDAY #48 tablet 04/07/19 Unknown Rx Erythromycin [Erythromycin Ophth 10 applic OP QID 7 Days #1 tube 07/17/19 Unknown Rx Oint] Sertraline [Zoloft] 50 mg PO QDAY #30 tablet 04/20/20 Unknown Rx Sertraline [Zoloft] 100 mg PO QDAY #30 tablet 04/20/20 Unknown Rx Baclofen 20 mg PO Q12H PRN #24 tablet 05/20/21 Unknown Rx traMADoL [Ultram] 50 mg PO Q6HR PRN #12 tablet 05/20/21 Unknown Rx Diclofenac Sodium 50 mg PO Q8H PRN #30 tablet. 08/15/21 Unknown Rx methOCARBAMOL [Robaxin TAB] 500 mg PO Q6H PRN #30 tablet 08/15/21 Unknown Rx Allergies Allergy/AdvReac Type Severity Reaction Status Date / Time POWDER IN GLOVES AdvReac Itching Uncoded 05/20/21 01:08 ED Review of Systems ROS: Stated complaint: SWOLLEN FEET;ALOT OF PAIN Other details as noted in HPI Constitutional: denies: chills, fever Eyes: denies: eye pain, eye discharge, vision change ENT: denies: ear pain, throat pain Respiratory: denies: cough, shortness of breath, wheezing Cardiovascular: denies: chest pain, palpitations Endocrine: no symptoms reported Gastrointestinal: denies: abdominal pain, nausea, diarrhea Genitourinary: denies: urgency, dysuria, discharge Musculoskeletal: joint swelling (Bilateral lower extremities with pain and swelling), arthralgia (Bilateral lower extremity pain and swelling). denies: back pain Skin: denies: rash, lesions Neurological: denies: headache, weakness, paresthesias Psychiatric: denies: anxiety, depression Hematological/Lymphatic: denies: easy bleeding, easy bruising ED Past Medical Hx - Past Medical History Hx Hypertension: Yes Hx Psychiatric Treatment: Yes (anxiety) Hx HIV: No Additional medical history: breast ca-2016 with chemo - Surgical History Hx Breast Surgery: Yes (RIGHT BREAST BX 12/2015) Additional Surgical History: left chest infusiport,tubaligation - Social History Smoking Status: Never Smoker Substance Use Type: None - Medications Home Medications: Home Medications Medication Instructions Recorded Confirmed Last Taken Type Sertraline [Zoloft] 2 tab PO QDAY 01/24/16 10/14/16 10/12/16 09:00 History traZODone [Desyrel] 100 mg PO QHS 09/26/16 10/14/16 10/12/16 09:00 History HYDROcodone/APAP 5-325 [Irrigon 1 each PO Q6HR PRN #30 tablet 10/14/16 Unknown Rx 5/325] hydroCHLOROthiazide 12.5 mg PO QDAY #14 tablet 09/01/17 Unknown Rx [Hydrochlorothiazide] Benzonatate [Tessalon Perles] 100 mg PO Q8HR PRN #20 capsule 03/21/18 Unknown Rx traMADoL [Ultram] 50 mg PO Q6HR PRN #7 tablet 03/21/18 Unknown Rx HYDROcodone/APAP 5-325 [Irrigon 1 each PO Q4HR PRN #12 tablet 04/25/18 Unknown Rx 5/325] predniSONE [Deltasone] 20 mg PO QDAY #5 tab 04/25/18 Unknown Rx Naproxen [Naprosyn TAB] 500 mg PO BID #20 tablet 08/29/18 Unknown Rx Acetaminophen/Codeine [Tylenol 1 tab PO Q6H PRN #12 tab 01/11/19 Unknown Rx /Codeine # 3 tab] Sertraline [Zoloft] 200 mg PO QDAY #48 tablet 04/07/19 Unknown Rx Erythromycin [Erythromycin Ophth 10 applic OP QID 7 Days #1 tube 07/17/19 Unknown Rx Oint] Sertraline [Zoloft] 50 mg PO QDAY #30 tablet 04/20/20 Unknown Rx Sertraline [Zoloft] 100 mg PO QDAY #30 tablet 04/20/20 Unknown Rx Baclofen 20 mg PO Q12H PRN #24 tablet 05/20/21 Unknown Rx traMADoL [Ultram] 50 mg PO Q6HR PRN #12 tablet 05/20/21 Unknown Rx Diclofenac Sodium 50 mg PO Q8H PRN #30 tablet. 08/15/21 Unknown Rx methOCARBAMOL [Robaxin TAB] 500 mg PO Q6H PRN #30 tablet 08/15/21 Unknown Rx ED Physical Exam - General Limitations: No Limitations General appearance: alert, in no apparent distress - Head Head exam: Present: atraumatic, normocephalic, normal inspection - Eye Eye exam: Present: normal appearance, PERRL, EOMI Pupils: Present: normal accommodation - ENT ENT exam: Present: normal exam, normal orophraynx, mucous membranes moist, TM's normal bilaterally, normal external ear exam - Neck Neck exam: Present: normal inspection, full ROM. Absent: tenderness - Respiratory Respiratory exam: Present: normal lung sounds bilaterally. Absent: respiratory distress, wheezes, rales, rhonchi, stridor, chest wall tenderness, accessory muscle use, decreased breath sounds - Cardiovascular Cardiovascular Exam: Present: regular rate, normal rhythm, normal heart sounds. Absent: systolic murmur, diastolic murmur, rubs, gallop - GI/Abdominal GI/Abdominal exam: Present: soft, normal bowel sounds. Absent: tenderness, guarding, rebound, rigid, hyperactive bowel sounds, hypoactive bowel sounds, organomegaly, mass - Extremities Exam Extremities exam: Present: normal inspection, full ROM, tenderness (Palpable bilateral diffuse lower extremity tenderness and swelling), normal capillary refill, joint swelling (Bilateral lower extremity swelling and tenderness), calf tenderness - Back Exam Back exam: Present: normal inspection - Neurological Exam Neurological exam: Present: alert, oriented X3, CN II-XII intact, normal gait, reflexes normal - Psychiatric Psychiatric exam: Present: normal affect, normal mood - Skin Skin exam: Present: warm, dry, intact, normal color. Absent: rash ED Course Vital Signs 08/14/21 20:43 Temperature 98.2 F Pulse Rate 80 Respiratory 18 Rate Blood Pressure 161/94 O2 Sat by Pulse 96 Oximetry ED Medical Decision Making - Lab Data Result diagrams: 08/15/21 00:58 08/15/21 00:58 - Radiology Data Radiology results: report reviewed, image reviewed [facility] [address] [place] [address] Vascular Lab Report Signed Patient: JOEL ABBOTT MR#: [id number] : 1970 Acct:[id number] Age/Sex: 50 / F ADM Date: 08/14/21 Loc: ED Attending Dr: Ordering Physician: ASHLEY ALDRICH Date of Service: 08/15/21 Procedure(s): VL venous duplex LE BILAT Accession Number(s): [id number] cc: ASHLEY ALDRICH DUPLEX DOPPLER LOWER EXTREMITY VEINS, BILATERAL INDICATION / CLINICAL INFORMATION: bilateral LE pain and swelling. TECHNIQUE: Duplex doppler imaging was performed through the veins of both lower extremities using venous compression and other maneuvers. COMPARISON: None available. FINDINGS: RIGHT COMMON FEMORAL VEIN: Negative. RIGHT FEMORAL VEIN: Negative. RIGHT POPLITEAL VEIN: Negative. RIGHT CALF VEINS: Negative. LEFT COMMON FEMORAL VEIN: Negative. LEFT FEMORAL VEIN: Negative. LEFT POPLITEAL VEIN: Negative. LEFT CALF VEINS: Negative. ADDITIONAL FINDINGS: None. IMPRESSION: 1. No sonographic evidence for DVT in either lower extremity. Signer Name: Alexia Tristan II, MD Signed: 08/15/2021 2:53 AM Workstation Name: [id number] Transcribed By: MARY Dictated By: ALEXIA TRISTAN II, MD Electronically Authenticated By: ALEXIA TRISTAN II, MD Signed Date/Time: 08/15/21252 DD/ 2 TD/TT: - Medical Decision Making This is a 50-year-old -German female with a history of hypertension, anxiety and breast cancer 3 years ago, and status post partial right mastectomy and who is final oral chemo therapy, and who presented to the ED with complaint of acute onset persistent bilateral lower extremity pain and swelling for the last 1 week. Patient states that she recently traveled by road to [place] and stayed there for 2 weeks and then drove back to [facility]. Patient states that the symptoms have worsened in the last 2 days. In the ED, patient is alert and oriented x3 and is not in any distress. Patient was treated for pain in the ED and lab test results were reviewed and are all nonactionable. Bilateral lower extremity Doppler ultrasound showed no sonographic evidence of DVT. On reevaluation, patient's pain is well controlled medication. Patient was discharged home on pain medications and muscle relaxants and advised to follow- up with her primary care physician in 7 to 10 days for reevaluation or return to the ED immediately if symptoms get worse. - Differential Diagnosis DVT; muscle spasm; muscle strain; CHF; renal failure Critical care attestation.: If time is entered above; I have spent that time in minutes in the direct care o f this critically ill patient, excluding procedure time. ED Disposition Clinical Impression: Muscle spasms of both lower extremities Pain and swelling of lower extremity Qualifiers: Laterality: unspecified laterality Qualified Code(s): M79.606 - Pain in leg, unspecified; M79.89 - Other specified soft tissue disorders Disposition: HOME / SELF CARE / HOMELESS Is pt being admited?: No Does the pt Need Aspirin: No Condition: Stable Instructions: Muscle Cramps and Spasms, [id number], Leg Cramps Additional Instructions: All lab test results were reviewed and are all nonactionable. Bilateral lower extremity Doppler ultrasound showed no sonographic evidence of DVT. Therefore your symptoms are likely due to dependent edema which can be controlled by elevating your legs above your heart to control the swelling. Alternatively you can also use tightfitting stockings to help control the swelling. Otherwise follow-up with your primary care physician in 7 to 10 days for reevaluation or return to the ED immediately if symptoms get worse. Prescriptions: Diclofenac Sodium 50 mg PO Q8H PRN #30 tablet.dr ALAMO Reason: Pain , Severe (7-10) methOCARBAMOL [Robaxin TAB] 500 mg PO Q6H PRN #30 tablet PRN Reason: Pain Referrals: WALTER GARZON MD [Staff Physician] - 7-10 days Time of Disposition: 04:13 Print Language: ANGOLAN
--- NOTE | 2021-08-15 02:58 | Vascular Lab Report ---
DUPLEX DOPPLER LOWER EXTREMITY VEINS, BILATERAL INDICATION / CLINICAL INFORMATION: bilateral LE pain and swelling. TECHNIQUE: Duplex doppler imaging was performed through the veins of both lower extremities using arthur ous compression and other maneuvers. COMPARISON: None available. FINDINGS: RIGHT COMMON FEMORAL VEIN: Negative. RIGHT FEMORAL VEIN: Negative. RIGHT POPLITEAL VEIN: Negative. RIGHT CALF VEINS: Negative. LEFT COMMON FEMORAL VEIN: Negative. LEFT FEMORAL VEIN: Negative. LEFT POPLITEAL VEIN: Negative. LEFT CALF VEINS: Negative. ADDITIONAL FINDINGS: None. IMPRESSION: 1. No sonographic evidence for DVT in either lower extremity. Signer Name: Michele Chew II, MD Signed: 08/15/2021 2:53 AM Workstation Name: [id number]
[2021-08-15 04:28] VITALS: BP 156/90
== END 2021-08-15 04:28 | disposition home or self-care (01) ==
LOC: ED 20:21
DX: M62.838 Other muscle spasm (principal); M79.661 Pain in right lower leg; M79.662 Pain in left lower leg; I10 Essential (primary) hypertension; F41.9 Anxiety disorder, unspecified; Z88.8 Allergy status to other drugs, medicaments and biological substances; Z79.899 Other long term (current) drug therapy
CPT/HCPCS: 36415; 80053; 83880; 85025; 93970; 99284